=== PATIENT | male | born 1960 | race Two or more races ===

== ENCOUNTER 2025-01-07 11:13 | Emergency (ER) | payer MEDICAID ==
[~2025-01-07] VITALS: Ht 165.1 cm; Wt 70.5 kg
[~2025-01-07 11:13] MED LIST: ALBUAER3 IN; APIX5TAB PO; ATOR-507 PO; AZIT500T66 PO; CARV-214 PO; EMPA1TAB PO; FURO1TAB31 PO; LISI20TA56 PO; SPIR25TA PO
[2025-01-07 11:20] VITALS: BP 126/92; RESP 19; TEMP 98.3; O2SAT 98
[2025-01-07 11:22] VITALS: PULSE 88
--- NOTE | 2025-01-07 11:44 | ED.PDOC ---
History of Present Illness HPI Comments 64-year-old male BIBA with prior medical history of COPD, CHF, AFib, hypertension: Surgical history of paracentesis complain of generalized weakness. EMS report that the patient has generalized weakness due from not taking his medications for three months except for his pain medications. Patient states on his last bowel movement being yesterday but assumes that he is constipated. Denies chills, fever, N/V/D, SOB, CP. No other associated symptoms, modifiers, recent injuries or sick contacts present at this time. Chief Complaint: General Weakness Time Seen by MD: 11:35 Primary Care Provider: UNKNOWN Reviewed Notes: Nurses Notes, Medications, Allergies Allergies: Coded Allergies: Penicillins (Verified Allergy, Unknown, 11/03/24) Home Meds Active Scripts Lisinopril (Lisinopril) 20 Mg Tab, 1 TAB PO DAILY, #30 TAB 5 Refills Prov:FIDEL BROWN MD 11/06/24 Apixaban Base (ELIQUIS) 5 Mg Tab, 5 MG PO BID, #60 TAB Prov:FIDEL BROWN MD 11/06/24 Carvedilol (COREG) 3.125 Mg Tab, 3.125 MG PO BID, #60 TAB Prov:FIDEL BROWN MD 11/06/24 Furosemide (Lasix) 40 Mg Tab, 40 MG PO DAILY, #30 TAB Prov:FIDEL BROWN MD 11/06/24 Azithromycin (Azithromycin) 500 Mg Tab, 1 TAB PO DAILY, #7 TAB Prov:FIDEL BROWN MD 11/06/24 Atorvastatin Calcium (Lipitor) 40 Mg Tab, 1 TAB PO DAILY, #30 TAB 5 Refills Prov:FIDEL BROWN MD 11/06/24 Empagliflozin (Jardiance) 10 Mg Tab, 10 MG PO DAILY, #30 TAB Prov:FIDEL BROWN MD 11/06/24 Albuterol Sulfate (VENTOLIN MDI) 90 Mcg Ih, 90 MCG IN QID PRN, #1 INH Prov:FIDEL BROWN MD 11/06/24 Spironolactone (Aldactone) 25 Mg Tab, 1 TAB PO DAILY, #30 TAB 5 Refills Prov:FIDEL BROWN MD 11/06/24 Information Source: Patient Mode of Arrival: EMS Severity: Moderate Timing: Months Duration: Since onset Prehospital treatment: None Past Medical History PAST MEDICAL HISTORY: AFIB, CHF, COPD, HTN Surgical History (Other): Paracentesis Family History Family History: Reviewed,noncontributory to illness, Unknown Social History Smoker: Quit Greater Than 1 Year Alcohol: Denies ETOH Use Drugs: Denies Drug Use Lives In: Home Constitutional: reports: weakness; denies: chills, diaphoresis, fatigue, fever, malaise, sweats, others EENTM: denies: blurred vision, double vision, ear bleeding, ear discharge, ear drainage, ear pain, ear ringing, eye pain, eye redness, hearing loss, mouth pain, mouth swelling, nasal discharge, nose bleeding, nose congestion, nose pain, photophobia, tearing, throat pain, throat swelling, voice changes, others Respiratory: denies: cough, hemoptysis, orthopnea, SOB at rest, shortness of breath, SOB with excertion, stridor, wheezing, others Cardiovascular: denies: chest pain, dizzy spells, diaphoresis, Dyspnea on exertion, edema, irregular heart beat, left arm pain, lightheadedness, palpitations, PND, syncope, others Gastrointestinal: denies: abdomen distended, abdominal pain, blood streaked bowels, constipated, diarrhea, dysphagia, difficulty swallowing, hematemesis, melena, nausea, poor appetite, poor fluid intake, rectal bleeding, rectal pain, vomiting, others Genitourinary: denies: burning, dysuria, flank pain, frequency, hematuria, incontinence, penile discharge, penile sore, pain, testicle pain, testicle swelling, urgency, others Neurological: denies: dizziness, fainting, headache, left sided numbness, left sided weakness, numbness, paresthesia, pre-existing deficit, right sided numbness, right sided weakness, seizure, speech problems, tingling, tremors, weakness, others Musculoskeletal: denies: back pain, gout, joint pain, joint swelling, muscle pain, muscle stiffness, neck pain, others Integumetry: denies: bruises, change in color, change in hair/nails, dryness, laceration, lesions, lumps, rash, wounds, others Allergic/Immunocompromised: denies: Difficulty Healing, Frequent Infections, Hives, Itching, others Hematologic/Lymphatic: denies: anemia, blood clots, easy bleeding, easy bruising, swollen glands, others Endocrine: denies: excessive hunger, excessive sweating, excessive thirst, excessive urination, flushing, intolerance to cold, intolerance to heat, unexplained weight gain, unexplained weight loss, others Psychiatric: denies: anxiety, bipolar disorder, depression, hopeless, panic disorder, schizophrenia, sleepless, suicidal, others All Other Systems: Reviewed and Negative Physical Exam Exam Comments Patient seems uncomfortable. General Appearance: No Apparent Distress, Normal HEENT: Normal ENT Inspection, Pharynx Normal, TMs Normal Neck: Full Range of Motion, Non-Tender, Normal, Normal Inspection Respiratory: Chest Non-Tender, Lungs Clear, No Accessory Muscle Use, No Respiratory Distress, Normal Breath Sounds Cardiovascular: No Edema, No JVD, No Murmur, No Gallop, Normal Peripheral Pulses, Regular Rate/Rhythm Breast Exam: Deferred Gastrointestinal: No Organomegaly, Non Tender, No Pulsatile Mass, Normal Bowel Sounds, Soft Genitalia: Deferred Pelvic: Deferred Rectal: Deferred Extremities: No calf tenderness, Normal capillary refill, Normal inspection, Normal range of motion, Non-tender, No pedal edema Musculoskeletal : Apperance: Normal Neurologic: Alert, 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 Was a procedure done?: No X-Ray, Labs, Meds, VS Vital Signs Date Time Temp Pulse Resp B/P (MAP) Pulse Ox O2 Delivery O2 Flow Rate FiO2 01/07/25 11:22 88 01/07/25 11:20 98.3 89 19 126/92 98 98.3 Time of 1ST Reevaluation: 12:05 Reevaluation 1ST: Unchanged Patient Education/Counseling: Diagnosis, Treatment, Prognosis Family Education/Counseling: No Family Present SEPSIS Sepsis Screen Date sepsis recognized/suspect: Jan 07, 2025 Time Sepsis recognized/suspect: 1117 Recent Procedure: No On Antibiotic Therapy: No Respiratory Rate >20: No Heart Rate >90: No Temp<36 C (96.8 F) or >38.3 C: No SBP <90 or MAP <65 mmHG: No New Acute Mental Status Change: No Is the patient on CPAP, BIPAP,: No Physician Orders Electrocardigram (01/07/25 11:30) Vital Signs Date Time Temp Pulse Resp B/P (MAP) Pulse Ox O2 Delivery O2 Flow Rate FiO2 01/07/25 11:22 88 01/07/25 11:20 98.3 89 19 126/92 98 98.3 Critical Care Note Critical Care Time?: No Stability Stability form required: No I personally scribed for JENIFER ANDRADE MD ([email or web address]) on 01/07/25 at 11:44. Electronically submitted by Rodriguez Sharpe ([email or web address]). JENIFER ANDRADE MD Jan 07, 2025 11:44
--- NOTE | 2025-01-08 19:25 | ECG ---
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
== END 2025-01-07 12:23 | disposition left against medical advice (07) ==
LOC: ER 11:13 → EDUNIT# 11:13 → EDBD 11:13 → ER 12:23
DX: R53.1 Weakness (principal); I11.0 Hypertensive heart disease with heart failure; I50.9 Heart failure, unspecified; I48.91 Unspecified atrial fibrillation; J44.9 Chronic obstructive pulmonary disease, unspecified; Z88.0 Allergy status to penicillin; Z79.899 Other long term (current) drug therapy
CPT/HCPCS: 93005

== ENCOUNTER 2025-01-19 16:00 | Inpatient (IN) | payer MEDICAID ==
[~2025-01-19] VITALS: Ht 170.2 cm; Wt 67.3 kg
--- NOTE | 2025-01-19 16:20 | ED.PDOC ---
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 Electronically submitted by Kylie Corral ([email or web address]). I personally scribed for MILENA BOSS DO ([email or web address]) on 01/19/25 at 16:21. Electronically submitted by Kylie Corral [email or web address]). MILENA BOSS DO Jan 19, 2025 16:20
--- NOTE | 2025-01-19 16:28 | ED.PDOC ---
SOB-HPI HPI Comments HPI: 64 y/o M, with PMHx of AFib, COPD, and CHF is BIBA for CC of shortness of breath. EMS reports, patient is coming from Urgent Care where he c/o shortness of breath onset, [id number]. Upon arrival, to scene patient was stating at 82% on room air; patient was placed on oxygen at 2lpm. Upon arrival, to the ED patient's oxygen saturation improved to 100% and all VS are WNL. Patient reports, that he does not currently have any at home medications despite PMHx. Patient denies cough, sore-throat, chest pain, palpations, or fever. No other symptoms or modifying factors are present at this time. Initial Vitals BP:132/78 HR:98 RR:20 O2 Sat:100% Temp: Past Medical history: AFib, COPD, CHF Past Surgical history: Medications: Lasix Social History: Denies smoking, ETOH, and drug use. Allergies: Penicillins [place]: SOB HPI: Poor Historian. REVIEW OF SYSTEMS: CONSTITUTIONAL: Denies acute: fever, diaphoresis, chills, HEAD: Denies acute: headache, photophobia Eyes: Denies acute: Double vision, vision loss, eye pain, eye discharge. EARS: Denies acute: tinnitus, hearing loss, ear discharge, ear pain, THROAT: Denies acute: sore throat, swelling, difficulty swallowing , pain with swallowing, change in voice. NECK: Denies acute: neck pain, neck swelling, stiff neck. HEART: Denies acute : chest pain, palpitations, LUNGS: Denies acute: , wheezing, cough, hemoptysis ABDOMEN: Denies acute: abdominal pain, Nausea, Vomiting, diarrhea, melena , hematemesis, hematochezia SKIN: Denies acute: rash, redness, lesions, itchiness. EXTREMITIES: Denies acute: calf pain, numbness, tingling, weakness, denies pain in extremity. Denies acute: Low back pain. Neuro: Denies acute: focal neurological deficit, motor or sensory focal neurological deficit, tremors, seizure like activity, confusion, dizziness, change in mental status, loss of bowel or bladder function, cauda equina like symptoms. : Denies acute: dysuria, hematuria, flank pain, increase in urinary frequency. PSYCH: Denies acute: hallucination, suicidal ideation, homicidal ideation. PHYSICAL EXAM: General: -----moderate---acute distress, awake and alert. Poor hygiene. Head: normocephalic, atraumatic. Neck: supple, trachea is midline, no swelling. Throat: Normal phonation. Eyes:, no erythema, no purulent discharge, no proptosis, no icterus. Heart: regular rate, regular rhythm, no significant murmur appreciated. Lungs: no apparent respiratory distress, Able to speak in full sentences. No wheezing, no rhonchi, no crackles. No stridors Clear to auscultation bilaterally. Abdomen: non tender to palpation, non distended, soft, no guarding, no rebound, + bowel sounds. Neuro: Awake, Alert, oriented to name, self, situation, follows commands GCS=15. Speech is normal. Skin: no petechia, no purpura, no cyanosis, non-pale, not jaundice. Lower extremities: --trace bilateral- Pitting edema no deformity, no focal swelling, no calf TTP. Makes eye contact. moves all four extremities. Face: no apparent facial droop. ED COURSE: DISCLAIMER: This medical document was created using an electronic medical record system with voice recognition software and computerized dictation system. Although this document has been carefully reviewed, there might still be some phonetic and typographical errors. Occasional wrong-word or "sound-alike" substitutions may have occurred due to the inherent limitations of voice recognition software. Th francisco areas are purely typographical due to imperfections of the software programs and do not reflect any compromise in the patient's medical care. Please read the chart carefully and recognize, using context, where these substitutions have occurred. Chief Complaint: Shortness of Breath Time Seen by MD: 15:50 Primary Care Provider: UNKNOWN Reviewed notes: Nurses Notes, Epic Cadence Analyst Notes, Medications, Allergies Information Source: Patient, Emergency Med Personnel Mode of Arrival: EMS Severity: Moderate Timing: Months Duration: Since onset Context: At Rest PE Risk Factors: None History of: COPD, CHF Prehospital treatment: None Modifying Factors: Nothing Associated Signs and Symptoms: None Differential Dx Differential Diagnosis: Bronchitis, Pneumonia, Pulmonary Embolism, Sinusitis, Pharyngitis, URI, Other (DDx include ACS, unstable angina, anxiety, PE, pneumothroax, neoplasm, cardiac ischemia, COPD, asthma, CHF, pleural effusion, tobacco abuse, pneumonia, hypoxia, hypercapnia, anemia., infection/sepsis., pulmonary edema. Asthma, Cardiac tamponade, infection.) X-Ray, Labs, Meds, VS Vital Signs Date Time Temp Pulse Resp B/P (MAP) Pulse Ox O2 Delivery O2 Flow Rate FiO2 01/19/25 19:30 99 17 95 Nasal Cannula* 2 28 01/19/25 19:00 98.2 99 16 104/64 (77) 95 98.2 01/19/25 18:21 106/69 01/19/25 18:00 97 20 106/69 (81) 95 01/19/25 17:25 97.7 106 18 107/65 (79) 97 97.7 01/19/25 17:25 106 18 97 Nasal Cannula* 2 28 01/19/25 16:10 109 01/19/25 16:00 98 20 132/78 100 Lab Test 01/19/25 19:13 01/19/25 17:38 Range/Units Lactic Acid Level 4.0 *H 4.5 *H 0.4-2.0 mmol/L Troponin I High Sensitivity 537 *H 600 *H </=54 ng/L White Blood Count 13.3 H 4.4-10.8 10^3/uL Red Blood Count 5.20 4.5-5.90 10^6/uL Hemoglobin 14.6 13.5-17.5 g/dL Hematocrit 44.8 41.0-53.0 % Mean Corpuscular Volume 86.3 80.0-100.0 fL Mean Corpuscular Hemoglobin 28.2 28.0-32.0 pg Mean Corpuscular Hemoglobin Concent 32.7 32.0-36.0 g/dL Red Cell Distribution Width 21.0 H 11.8-14.3 % Platelet Count 141 140-450 10^3/uL Mean Platelet Volume 10.0 6.9-10.8 fL Neutrophils (%) (Auto) 89.8 H 37.0-80.0 % Lymphocytes (%) (Auto) 2.2 L 10.0-50.0 % Monocytes (%) (Auto) 7.3 0.0-12.0 % Eosinophils (%) (Auto) 0.1 0.0-7.0 % Basophils (%) (Auto) 0.6 0.0-2.0 % Neutrophils # (Auto) 11.9 H 1.6-8.6 10 ^3/uL Lymphocytes # (Auto) 0.3 L 0.4-5.4 10 ^3/uL Monocytes # (Auto) 1.0 0-1.3 10 ^3/uL Eosinophils # (Auto) 0 0-0.8 10 ^3/uL Basophils # (Auto) 0.1 0-0.2 10 ^3/uL Nucleated Red Blood Cells 0.1 % D-Dimer, Quantitative 2.74 H 0.0-0.49 mg/L FEU Sodium Level 134 L 136-145 mmol/L Potassium Level 4.6 3.5-5.1 mmol/L Chloride Level 98 98-107 mmol/L Carbon Dioxide Level 21 20-31 mmol/L Anion Gap 15 5-15 Blood Urea Nitrogen 35 H 9-23 mg/dL Creatinine 1.90 H 0.700-1.30 mg/dL Glomerular Filtration Rate Calc 39 >90 mL/min BUN/Creatinine Ratio 18.4 10.0-20.0 Serum Glucose 163 H 74-106 mg/dL Calcium Level 9.4 8.7-10.4 mg/dL Total Bilirubin 3.1 H 0.2-1.0 mg/dL Aspartate Amino Transferase (AST) 400 H 13-40 U/L Alanine Aminotransferase (ALT) 209 H 7-40 U/L Alkaline Phosphatase 257 H 46-116 U/L B-Type Natriuretic Peptide > 5000.00 0-100 pg/mL Total Protein 6.9 5.7-8.2 g/dL Albumin 3.8 3.2-4.8 g/dL [address] [address] Ph: [phone] DIAGNOSTIC IMAGING Diagnostic Imaging Report : [id number] Signed PATIENT: ZEKE FLORIAN ACCT: [id number] UNIT: [id number] : 1960 LOC: ER ROOM / BED: / AGE / SEX: 64 / M ADM STATUS: REG ER SERVICE 1610 ORDERING PHYSICIAN: KARYN,MILENA J DO PROCEDURE(s): CXRP - CHEST PORTABLE REASON: sob ORDER NUMBER(s): [id number], ACCESSION NUMBER(s): [id number] CHEST RADIOGRAPH Indication: sob Technique: Single frontal view of the chest was obtained Comparison: XY CHEST XRAY 1 VIEW on DOS: 11/04/24, XY CHEST PORTABLE on DOS: 11/03/24 FINDINGS: Lines and Tubes: None Lungs: Diffuse interstitial prominence. Opacification of the right mid and lower lung zone with obscuration of the right hemidiaphragm No pneumothorax. Cardiomediastinal contours: Moderate cardiomegaly Bones: No acute osseous abnormality. IMPRESSION: Cardiomegaly with pulmonary vascular congestion and large right-sided pleural effusion with associated atelectasis. Underlying pneumonia can not be excluded. ATED BY: ZARINA POOL DO DICTATED DATE/TIME: 01/19/25 163 SIGNED BY: ZARINA POOL DO SIGNED DATE/TIME: 01/19/25 1639 CC: Time of 1ST Reevaluation: 16:20 Reevaluation 1ST: Unchanged Time of 2ND Reevaluation: 17:51 (All labs are still pending) Patient Education/Counseling: Diagnosis, Treatment Family Education/Counseling: Other Comments MDM: patient presented with the above HPI.---dyspnea---workup was initiated. patient was found with the above mentioned diagnosis. the following medications were ordered: please refer to order lists of meds and tests obtained by myself Dr. Boss. Patient ED course and VS have been stabilized. Patient has been reassessed in the ED and remained in a stable condition. Pertinent incidental findings were discussed with the patient and/or family. Patient/family voices understanding and is agreeable with plan. Patient has been observed in the ED adequate length of time to insure i mprovement/stability. Escalation of care considered: Consideration of escalation to observation or admission Patient was found with multiple conditions including pneumonia. Antibiotics initiated. Diuretics were given. Patient was ADMITTED to the medicine team for further evaluation and treatment of their presentation. All the reports of any imaging studies that were ordered by myself were reviewed by myself. 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 (01/19/25 ) Chest Portable (01/19/25 16:10) Electrocardigram (01/19/25 16:10) Electrocardigram (01/19/25 17:10) Electrocardigram (01/19/25 19:10) Vital Signs Date Time Temp Pulse Resp B/P (MAP) Pulse Ox O2 Delivery O2 Flow Rate FiO2 01/19/25 19:30 99 17 95 Nasal Cannula* 2 28 01/19/25 19:00 98.2 99 16 104/64 (77) 95 98.2 01/19/25 18:21 106/69 01/19/25 18:00 97 20 106/69 (81) 95 01/19/25 17: 97.7 106 18 107/65 (79) 97 97.7 01/19/25 17:25 106 18 97 Nasal Cannula* 2 28 01/19/25 16:10 109 01/19/25 16:00 98 20 132/78 100 Laboratory Tests Test 01/19/25 17:38 01/19/25 19:13 Lactic Acid Level 4.5 mmol/L (0.4-2.0) *H 4.0 mmol/L (0.4-2.0) *H White Blood Count 13.3 10^3/uL (4.4-10.8) H Departure 1 Departure Time of Disposition: 16:20 Impression: Primary Impression: Acute exacerbation of CHF (congestive heart failure) Additional Impressions: Acute hypoxic respiratory failure Pneumonia Elevated troponin Elevated LFTs Elevated lactic acid level Elevated d-dimer Disposition: ADMITTED INPATIENT Admit to: Tele Condition: Guarded e-Prescriptions Linezolid (Zyvox) 600 Mg Tab 600 MG PO BID for 7 Days, #14 TAB Prov: GILBERT MEZA MD 01/23/25 Mupirocin (Pseudomonas Fluores (Mupirocin) 2 % Oin 2 % EX BID for 4 Days, #15 GM Prov: GILBERT MEZA MD 01/23/25 Discharged With: Self Critical Care Note Critical Care Time?: Yes (45 min-critical care time only) Heart Score Heart Score: Heart Score Response (Comments) Value History Moderate Suspicious 1 EKG Normal 0 Age 45-64 1 Risk Factors 1 or 2 risk factors 1 Troponin >3 x's Normal limit 2 Total 5 I personally scribed for MILENA BOSS DO ([email or web address]) on 01/19/25 at 16:28. Electronically submitted by Kylie Corral ([email or web address]). I personally scribed for MILENA BOSS DO ([email or web address]) on 01/19/25 at 16:49. Electronically submitted by Kylie Corral ([email or web address]). MILENA BOSS DO Jan 19, 2025 16:28
--- NOTE | 2025-01-19 16:42 | DVH ---
CHEST RADIOGRAPH Indication: sob Technique: Single frontal view of the chest was obtained Comparison: XY CHEST XRAY 1 VIEW on DOS: 11/04/24, XY CHEST PORTABLE on DOS: 11/03/24 FINDINGS: Lines and Tubes: None Lungs: Diffuse interstitial prominence. Opacification of the right mid and lower lung zone with obsc uration of the right hemidiaphragm No pneumothorax. Cardiomediastinal contours: Moderate cardiomegaly Bones: No acute osseous abnormality. IMPRESSION: Cardiomegaly with pulmonary vascular congestion and large right-sided pleural effusion with associate d atelectasis. Underlying pneumonia can not be excluded.
--- NOTE | 2025-01-19 17:04 | ECG ---
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
[2025-01-19 17:25] VITALS: PULSE 106; RESP 18; O2SAT 97
--- NOTE | 2025-01-19 18:00 | ECG ---
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
[2025-01-19 18:03] LABS: Hematocrit 44.8 % (41.0-53.0); Hemoglobin 14.6 g/dL (13.5-17.5); Mean Corpuscular Hemoglobin 28.2 pg (28.0-32.0); Mean Corpuscular Volume 86.3 fL (80.0-100.0); Nucleated Red Blood Cells % 0.1 %
[2025-01-19 18:19] LABS: Albumin 3.8 g/dL (3.2-4.8); Anion Gap 15 (5-15); BUN/Creatinine Ratio 18.4 (10.0-20.0); Calcium 9.4 mg/dL (8.7-10.4); Carbon Dioxide 21 mmol/L (20-31); Potassium 4.6 mmol/L (3.5-5.1); Total Protein 6.9 g/dL (5.7-8.2)
[2025-01-19] MEDS: FUROSEMIDE 40 MG/4 ML VIAL IV ONE (18:21)
[2025-01-19] MEDS: methylPREDNISolone SOD SUCC 125 MG/2 ML VL IV ONE (18:21)
[2025-01-19] MEDS: ALBUTEROL SULF 2.5 MG/0.5ML(0.5%) NEB SOLN NEB ONE (18:25)
[2025-01-19] MEDS: ASPirin-EC 325mg tab PO ONE (18:25)
[2025-01-19] MEDS: IPRATROPIUM BROM 0.5 MG/2.5ML INH SOL NEB ONE (18:25)
[2025-01-19] MEDS: levoFLOXacin 250 MG TAB PO ONE (18:25)
[2025-01-19 18:26] LABS: Alanine Aminotransferase 209 U/L (7-40); Alkaline Phosphatase 257 U/L (46-116); Bilirubin, Total 3.1 mg/dL (0.2-1.0); Blood Urea Nitrogen 35 mg/dL (9-23); Chloride 98 mmol/L (98-107); Glucose 163 mg/dL (74-106); Sodium 134 mmol/L (136-145)
[2025-01-19 18:37] LABS: Lactic Acid w/Reflex 4.5 mmol/L (0.4-2.0)
[2025-01-19 19:30] VITALS: PULSE 99; RESP 17; O2SAT 95
[2025-01-19] MEDS ORDERED: MORPHINE SULFATE INJ 2 MG/ml SYRG IV PRN (19:45)
[2025-01-19] MEDS ORDERED: NITROGLYCERIN 0.4 MG SL TAB SL PRN (19:45)
[2025-01-19] MEDS ORDERED: ONDANSETRON HCL 4 MG/2 ML VIAL IV PRN (19:45)
--- NOTE | 2025-01-19 20:18 | ECG ---
[facility] Test Date: 2025-01-19 Test Time: 19:46:32 Pat Name: ZEKE FLORIAN Department: Room: 0232T Gender: M Recapper: YG : 1960 Requested By: MILENA BOSS Order Number: [id number] Reading MD: Adonis Plaza Measurements Intervals [place] Rate: 98 P: 83 ME: 173 QRS: 259 QRSD: 177 T: 66 QT: 420 QTc: 537 Interpretive Statements Sinus rhythm Nonspecific IVCD with LAD Probable lateral infarct, age indeterminate Anterior infarct, acute (LAD) Electronically Signed On 01-20-2025 16:41:07 PDT by Adonis Plaza Please click the below link to view image of tracing.
[2025-01-19 20:30] VITALS: BP 104/64; PULSE 100; RESP 18; TEMP 98.2; O2SAT 98
[2025-01-19] MEDS: APIXABAN 5 MG TAB PO SCH (22:12)
[2025-01-19] MEDS: ATORVASTATIN 20 MG TAB PO SCH (22:12)
[2025-01-19] MEDS: CARVEDILOL 3.125 MG TAB PO SCH (22:13)
[2025-01-20] VITALS (17 sets, daily range): BP systolic 93–115; BP diastolic 66–83; PULSE 83–107; RESP 18–25; TEMP 96.3–98.1; O2SAT 90–100
[2025-01-20] MEDS: TEMAZEPAM 15 MG CAP PO PRN (00:21)
--- NOTE | 2025-01-20 04:36 | DVHHP2 ---
History of Present Illness Reason for Visit: Shortness for breath History of Present Illness 64-year-old male presents for evaluation of shortness for breath. Patient endorses a one month history of worsening shortness for breath. He states symptoms became worse over the past three days with associated chest tightness and a nonproductive cough. He states not taking his medications over the past couple of days. Denies fever or chills. No other acute complaints reported. Past Medical History COPD, hypertension, CHF, AFib Past Surgical History Denies Family History Noncontributory Smoke: No ALCOHOL: none Drugs: None Lives: with Family Review of Systems Review of Systems Review of systems are currently negative otherwise addressed in HPI. Allergies: Coded Allergies: Penicillins (Verified Allergy, Unknown, 11/03/24) Medications Current Medications Medications Dose Ordered Sig/Simon Route Start Time Stop Time Status Last Admin Dose Admin Spironolactone 25 mg DAILY PO 01/20/25 10:00 Lisinopril 20 mg DAILY PO 01/20/25 10:00 Apixaban 5 mg BID PO 01/19/25 22:00 01/19/25 22:12 5 MG Atorvastatin Calcium 40 mg HS PO 01/19/25 22:00 01/19/25 22:12 40 MG Aspirin 162 mg DAILY PO 01/20/25 10:00 Carvedilol 3.125 mg Q12HR PO 01/19/25 22:00 01/19/25 22:13 3.125 MG Empaglifozin 10 mg DAILY PO 01/20/25 10:00 Furosemide 20 mg BIDD IV 01/20/25 06:00 Albuterol 2.5 mg Q6HPRN PRN NEB 01/19/25 19:45 Ipratropium [place] 0.5 mg Q6HPRN PRN NEB 01/19/25 19:45 Levofloxacin 50 ml @ 50 mls/hr Q24H IV 01/20/25 17:00 Temazepam 15 mg QHSP PRN PO 01/19/25 19:45 01/20/25 00:21 15 MG Ondansetron HCl 4 mg Q4HP PRN IV 01/19/25 19:45 Acetaminophen 650 mg Q6HP PRN PO 01/19/25 19:45 Nitroglycerin 0.4 mg Q5MINP PRN SL 01/19/25 19:45 Morphine Sulfate 2 mg Q30M PRN IV 01/19/25 19:45 Exam Vital Signs Vital Signs Date Time Temp Pulse Resp B/P (MAP) Pulse Ox O2 Delivery O2 Flow Rate FiO2 01/20/25 03:07 86 18 Nasal Cannula* 2 28 01/20/25 03:07 97.5 93/66 (75) 95 97.5 Exam Gen: 64-year-old male in mild Skin: Warm, dry, normal color and texture, no rash. HEENT: Normocephalic atraumatic, mucous membranes moist and pink. Neck: Cervical and supraclavicular nodes normal without enlargement, trachea is midline, thyroid gland is normal without masses. Pulmonary: Clear to auscultation and percussion bilaterally. Cardiac: Regular rate and rhythm. No murmur Abdomen: Soft, nontender, nondistended, bowel sounds present all 4 quadrants, no guarding, no rigidity, no organomegaly. Extremities: No cyanosis, clubbing, no edema Neuro: Cranial nerves II through XII grossly intact, normal affect and speech, no focal motor deficits. Labs/Xrays ORDERING PHYSICIAN: DA JIANG PROCEDURE(s): ECIDC - ECHO 2D MODE CARDIAC DOP REASON: ef ORDER NUMBER(s): [id number], ACCESSION NUMBER(s): [id number] APPROVED REPORT EXAM: Two-dimensional echocardiogram with Optison. Blood Pressure: 128/81 mmHg INDICATION ef RISK FACTORS Height: 5'6, Weight: 187 DIMENSIONS LVDd 6.6 (3.8-5.7cm) LA (2D) 4.8 (1.9-4.0cm) Aortic Root 2.9 (2.0- 3.7cm) LVDs 5.7 (2.5-4.0cm) LA (MM) (1.9-4.0cm) Aortic Cusp Exc 1.7 (1.5- 2.0cm) EF (%) 15.0 (55-70%) Rt. Atrium 5.0 (1.9-4.0cm) Asc. Aorta 3.1 cm IVSd 0.7 (0.7-1.1cm) RV (D) 4.7 (1.8-2.4cm) PWd 0.6 (0.7-1.1cm) Mitral Valve Mitral Mitral Stenosis E wave m/s MV Mean GR. 3mmHg A wave m/s MV Peak GR. 83mmHg E/A ratio 0.0 2D MVA cm2 Aortic Valve Aortic Valve Aortic Stenosis V1 0.65m/s AO Mean GR. mmHg V2 0.92m/s AO Peak GR. 3mmHg LVOT Diameter 2.1 (1.8-2.4cm) Doppler MORENA 2.45cm2 Pulmonic Valve V2 0.70m/s Tricuspid Valve TR Velocity 2.89m/s RVSP 44mmHg Other Information Technically limited study due to pt woke up very confused pulling on ekg. Conclusion lvef 15% severe end stage dilated CM optsion used for enhanced LV opacifciaiton apical thrombus noted <1 cm moderate RV dysfunction biatrianl enlargement severe tricuspid regurg moderate to severe MR SIGNED BY: SERJIO LUCIANO MD ORDERING PHYSICIAN: MILENA BOSS DO PROCEDURE(s): CXRP - CHEST PORTABLE REASON: sob ORDER NUMBER(s): [id number], ACCESSION NUMBER(s): [id number] CHEST RADIOGRAPH Indication: sob Technique: Single frontal view of the chest was obtained Comparison: XY CHEST XRAY 1 VIEW on DOS: 11/04/24, XY CHEST PORTABLE on DOS: 11/03/24 FINDINGS: Lines and Tubes: None Lungs: Diffuse interstitial prominence. Opacification of the right mid and lower lung zone with obscuration of the right hemidiaphragm No pneumothorax. Cardiomediastinal contours: Moderate cardiomegaly Bones: No acute osseous abnormality. IMPRESSION: Cardiomegaly with pulmonary vascular congestion and large right-sided pleural effusion with associated atelectasis. Underlying pneumonia can not be excluded. Labs Test 01/19/25 21:16 01/19/25 19:13 01/19/25 17:38 Range/Units Troponin I High Sensitivity 572 *H </=54 ng/L Lactic Acid Level 4.0 *H 0.4-2.0 mmol/L White Blood Count 13.3 H 4.4-10.8 10^3/uL Red Blood Count 5.20 4.5-5.90 10^6/uL Hemoglobin 14.6 13.5-17.5 g/dL Hematocrit 44.8 41.0-53.0 % Mean Corpuscular Volume 86.3 80.0-100.0 fL Mean Corpuscular Hemoglobin 28.2 28.0-32.0 pg Mean Corpuscular Hemoglobin Concent 32.7 32.0-36.0 g/dL Red Cell Distribution Width 21.0 H 11.8-14.3 % Platelet Count 141 140-450 10^3/uL Mean Platelet Volume 10.0 6.9-10.8 fL Neutrophils (%) (Auto) 89.8 H 37.0-80.0 % Lymphocytes (%) (Auto) 2.2 L 10.0-50.0 % Monocytes (%) (Auto) 7.3 0.0-12.0 % Eosinophils (%) (Auto) 0.1 0.0-7.0 % Basophils (%) (Auto) 0.6 0.0-2.0 % Neutrophils # (Auto) 11.9 H 1.6-8.6 10 ^3/uL Lymphocytes # (Auto) 0.3 L 0.4-5.4 10 ^3/uL Monocytes # (Auto) 1.0 0-1.3 10 ^3/uL Eosinophils # (Auto) 0 0-0.8 10 ^3/uL Basophils # (Auto) 0.1 0-0.2 10 ^3/uL Nucleated Red Blood Cells 0.1 % D-Dimer, Quantitative 2.74 H 0.0-0.49 mg/L FEU Sodium Level 134 L 136-145 mmol/L Potassium Level 4.6 3.5-5.1 mmol/L Chloride Level 98 98-107 mmol/L Carbon Dioxide Level 21 20-31 mmol/L Anion Gap 15 5-15 Blood Urea Nitrogen 35 H 9-23 mg/dL Creatinine 1.90 H 0.700-1.30 mg/dL Glomerular Filtration Rate Calc 39 >90 mL/min BUN/Creatinine Ratio 18.4 10.0-20.0 Serum Glucose 163 H 74-106 mg/dL Calcium Level 9.4 8.7-10.4 mg/dL Total Bilirubin 3.1 H 0.2-1.0 mg/dL Aspartate Amino Transferase (AST) 400 H 13-40 U/L Alanine Aminotransferase (ALT) 209 H 7-40 U/L Alkaline Phosphatase 257 H 46-116 U/L B-Type Natriuretic Peptide > 5000.00 0-100 pg/mL Total Protein 6.9 5.7-8.2 g/dL Albumin 3.8 3.2-4.8 g/dL SEPSIS Sepsis Screen Date sepsis recognized/suspect: Jan 19, 2025 Time Sepsis recognized/suspect: 1929 Recent Procedure: No On Antibiotic Therapy: No Respiratory Rate >20: No Heart Rate >90: No Temp<36 C (96.8 F) or >38.3 C: No SBP <90 or MAP <65 mmHG: No New Acute Mental Status Change: No Is the patient on CPAP, BIPAP,: No Physician Orders Mrsa Screen (01/20/25 03:14) * Cardiology Consult (01/20/25 03:34) Vital Signs Date Time Temp Pulse Resp B/P (MAP) Pulse Ox O2 Delivery O2 Flow Rate FiO2 01/20/25 03:07 86 18 Nasal Cannula* 2 28 01/20/25 03:07 97.5 86 18 93/66 (75) 95 97.5 01/20/25 02:00 87 01/20/25 01:00 99 19 115/55 (75) 96 01/20/25 00:00 89 01/19/25 23:40 100 16 115/79 (91) 92 01/19/25 23:13 73 99/62 01/19/25 22:13 101 115/55 01/19/25 21:00 102 18 117/65 (82) 93 Laboratory Tests Test 01/19/25 17:38 01/19/25 19:13 Lactic Acid Level 4.5 mmol/L (0.4-2.0) *H 4.0 mmol/L (0.4-2.0) *H White Blood Count 13.3 10^3/uL (4.4-10.8) H Medications Medications Dose Ordered Sig/Simon Route Start Time Stop Time Status Last Admin Dose Admin Apixaban 5 mg BID PO 01/19/25 22:00 01/19/25 22:12 5 MG Aspirin 325 mg ONCE ONCE PO 01/19/25 16:45 01/19/25 16:46 DC 01/19/25 18:25 325 MG Atorvastatin Calcium 40 mg HS PO 01/19/25 22:00 01/19/25 22:12 40 MG Carvedilol 3.125 mg Q12HR PO 01/19/25 22:00 01/19/25 22:13 3.125 MG Furosemide 40 mg ONCE ONCE IV 01/19/25 16:45 01/19/25 16:46 DC 01/19/25 18:21 40 MG Levofloxacin 750 mg ONCE ONCE PO 01/19/25 16:45 01/19/25 16:46 DC 01/19/25 18:25 750 MG Temazepam 15 mg QHSP PRN PO 01/19/25 19:45 01/20/25 00:21 15 MG Assessment/Plan Assessment/Plan Assessment Acute on chronic respiratory failure CHF exacerbation COPD Noncompliant Plan Admit the patient to telemetry to the hospitalist IV Lasix Resume home medications Continue treatment per orders. Plan discussed with: Patient My Orders Orders - DA JIANG Procedure Category Date Status Time Spironolactone PHA 01/20/25 In Process (Aldactone) 10:00 Lisinopril Tablet PHA 01/20/25 In Process (Zestril Tablet) 10:00 Apixaban (Eliquis) PHA 01/19/25 In Process 22:00 Atorvastatin (Lipitor) PHA 01/19/25 In Process 22:00 Aspirin Tablet PHA 01/20/25 In Process 10:00 Carvedilol Tablet PHA 01/19/25 In Process (Coreg Tablet) 22:00 Empagliflozin PHA 01/20/25 In Process (Jardiance) 10:00 Furosemide Injection PHA 01/20/25 In Process (Lasix Injection) 06:00 Albuterol Medneb PHA 01/19/25 In Process (Ventolin Medneb) 19:45 Ipratropium Medneb PHA 01/19/25 In Process (Atrovent Medneb) 19:45 Levofloxacin 250mg PHA 01/20/25 In Process (Levaquin 250mg) 17:00 Basic Metabolic Panel LAB 01/20/25 Logged 04:00 Admit ADMIT 01/19/25 Transmitted 19:40 Temazepam (Restoril) PHA 01/19/25 In Process 19:45 Ondansetron Hcl PHA 01/19/25 In Process (Zofran) 19:45 Cardiac DIET 01/20/25 Transmitted Diet-2gna,Lofat,Lochol Breakfast Condition: Fair [facility] 01/19/25 In Process 19:40 Acetaminophen Tablet [facility] 01/19/25 In Process (Tylenol Tablet) 19:45 Bedrest With Bathroom [facility] 01/19/25 In Process Privileg 19:40 Nitroglycerin [facility] 01/19/25 In Process Sublingual (Ntrostat 19:45 Morphine Sulfate [facility] 01/19/25 In Process Injection 19:45 Stat Ekg For Chest [facility] 01/19/25 In Process Pain 19:40 Notify Md Of Changes [facility] 01/19/25 In Process From Base 19:40 Final Inspector Truck Trailer For [facility] 01/19/25 In Process 24 Hours 19:40 Emergency Dysrhythmia [facility] 01/19/25 In Process Protocol 19:40 Rhythm Strips Once [facility] 01/19/25 In Process Every Shift 19:40 Oxygen By Nasal RT 01/19/25 Transmitted Cannula 19:40 Mrsa Screen JUAN 01/20/25 Uncollected 03:14 * Cardiology Consult CONS 01/20/25 Transmitted 03:34 Date of Service: Jan 19, 2025 Billing Provider: DA JIANG Common Visit Codes: [id number] INP/OBS CARE (HIGH) DA JIANG Jan 20, 2025 04:36
[2025-01-20] MEDS: FUROSEMIDE 20 MG/2 ML VIAL IV SCH (06:35)
[2025-01-20 08:27] LABS: Anion Gap 12 (5-15); Calcium 9.0 mg/dL (8.7-10.4); Carbon Dioxide 24 mmol/L (20-31)
[2025-01-20 08:32] LABS: BUN/Creatinine Ratio 30.9 (10.0-20.0)
[2025-01-20 08:35] LABS: Blood Urea Nitrogen 60 mg/dL (9-23); Chloride 96 mmol/L (98-107); Glucose 254 mg/dL (74-106); Potassium 5.4 mmol/L (3.5-5.1); Sodium 132 mmol/L (136-145)
--- NOTE | 2025-01-20 09:05 | MEDREC ---
FORMERLY [facility], [facility] Intervention Section I FORMERLY [facility], [facility] Intervention: Review courses of therapy (QTc = 537, consider changing levofloxacin to doxycycline) RIYA JOSÉ PHARMACIST Jan 20, 2025 09:05
[2025-01-20] MEDS: ALBUTEROL SULF 2.5 MG/0.5ML(0.5%) NEB SOLN NEB PRN (09:06)
[2025-01-20] MEDS: IPRATROPIUM BROM 0.5 MG/2.5ML INH SOL NEB PRN (09:06)
[2025-01-20] MEDS: SPIRONOLACTONE 25 MG TAB PO SCH (09:35)
[2025-01-20] MEDS: EMPAGLIFLOZIN 10 MG TAB PO SCH (09:36)
[2025-01-20] MEDS: LISINOPRIL 20 MG TAB PO SCH (09:36)
--- NOTE | 2025-01-20 11:27 | DVHCONRES ---
Date Seen: Jan 20, 2025 Resident Creating Document: BAILEE ASENCIO RESIDENT Referring Physician DA JIANG Reason for Consultation elevated trop History of Present Illness * Chief concern: Worsening dyspnea for ~1 month, markedly worse over the last 3 days with chest tightness; intermittent non-productive cough. * Today: On 2 L NC with SpO? 99%. Reports orthopnea and fatigue. Endorses anxiety; primary team addressing active suicidal statements and safety. Medication adherence over the last few days is uncertain (chart suggests missed doses; patient currently reports taking meds). No new chest pain distinct from baseline pressure. * Relevant history: End-stage dilated cardiomyopathy with EF 15% (11/04/24), LV apical thrombus <1 cm, severe MR, severe TR, moderate RV dysfunction; COPD; HTN; DM2; AFib (on apixaban). Prior admission 11/04/24 for ADHF with type 2 AZ, pneumonia, VIVIANA, transaminitis; hospice previously discussed. Brief gist of [place] hospital course (progress/treatments/labs/imaging): * Hemodynamics soft but stable (SBP 50574; HR variable 77339; RR 1825). * Congestion persists: CXR with cardiomegaly and pulmonary vascular congestion; possible pleural effusions. * Labs notable for BNP >5000, lactate 4.5 (persistent), Na 132, K 5.4, BUN 60 / Cr 1.94 (GFR 38), AST/ALT/ALP 400/209/257, WBC 13.3 (N% 89.8), D-dimer 2.74; hs- troponin 600/572/537 ([id number], consistent with type 2 demand). * No new ischemic ECG changes (baseline LBBB). * Receiving bronchodilators and levofloxacin from primary team; on home apixaban . Todays Cardiology Plan (high-level): cautious IV diuresis; hold/adjust GDMT in setting of hypoperfusion/VIVIANA/hyperkalemia; continue therapeutic anticoagulation for LV thrombus; avoid invasive coronary/valvular interventions; palliative/hospice conversation supported. Past Medical History End-stage HFrEF (EF 15%), LV apical thrombus, AFib, severe MR/TR, moderate RV dysfunction, COPD, HTN, DM2, prior type AZ, CKD (eGFR ~38). Past Surgical History No recent cardiac procedures. Family History: Patient reports no known family medical history. Social History Unhoused; prior stimulant use; limited outpatient follow-up capacity. Allergies: Coded Allergies: Penicillins (Verified Allergy, Unknown, 11/03/24) Home Meds Active Scripts Lisinopril (Lisinopril) 20 Mg Tab, 1 TAB PO DAILY, #30 TAB 5 Refills Prov:FIDEL BROWN MD 11/06/24 Apixaban Base (ELIQUIS) 5 Mg Tab, 5 MG PO BID, #60 TAB Prov:FIDEL BROWN MD 11/06/24 Carvedilol (COREG) 3.125 Mg Tab, 3.125 MG PO BID, #60 TAB Prov:FIDEL BROWN MD 11/06/24 Furosemide (Lasix) 40 Mg Tab, 40 MG PO DAILY, #30 TAB Prov:FIDEL BROWN MD 11/06/24 Azithromycin (Azithromycin) 500 Mg Tab, 1 TAB PO DAILY, #7 TAB Prov:FIDEL BROWN MD 11/06/24 Atorvastatin Calcium (Lipitor) 40 Mg Tab, 1 TAB PO DAILY, #30 TAB 5 Refills Prov:FIDEL BROWN MD 11/06/24 Empagliflozin (Jardiance) 10 Mg Tab, 10 MG PO DAILY, #30 TAB Prov:FIDEL BROWN MD 11/06/24 Albuterol Sulfate (VENTOLIN MDI) 90 Mcg Ih, 90 MCG IN QID PRN, #1 INH Prov:FIDEL BROWN MD 11/06/24 Spironolactone (Aldactone) 25 Mg Tab, 1 TAB PO DAILY, #30 TAB 5 Refills Prov:FIDEL BROWN MD 11/06/24 Current Medications Current Medications Medications (Trade) Dose Ordered Sig/Simon Route PRN Reason Start Time Stop Time Status Last Admin Spironolactone (Aldactone) 25 mg DAILY PO 01/20/25 10:00 01/20/25 09:35 Lisinopril (Zestril Tablet) 20 mg DAILY PO 01/20/25 10:00 01/20/25 09:36 Apixaban (Eliquis) 5 mg BID PO 01/19/25 22:00 01/20/25 09:36 Atorvastatin Calcium (Lipitor) 40 mg HS PO 01/19/25 22:00 01/19/25 22:12 Aspirin 162 mg DAILY PO 01/20/25 10:00 01/20/25 09:35 Carvedilol (Coreg Tablet) 3.125 mg Q12HR PO 01/19/25 22:00 01/20/25 09:36 Empaglifozin (Jardiance) 10 mg DAILY PO 01/20/25 10:00 01/20/25 09:36 Furosemide (Lasix Injection) 20 mg BIDD IV 01/20/25 06:00 01/20/25 06:35 Albuterol (Ventolin Medneb) 2.5 mg Q6HPRN PRN NEB SHORTNESS OF BREATH 01/19/25 19:45 01/20/25 09:06 Ipratropium [place] (Atrovent Medneb) 0.5 mg Q6HPRN PRN NEB SHORTNESS OF BREATH 01/19/25 19:45 01/20/25 09:06 Levofloxacin 50 ml @ 50 mls/hr Q24H IV 01/20/25 17:00 Temazepam (Restoril) 15 mg QHSP PRN PO FOR INSOMNIA 01/19/25 19:45 01/20/25 00:21 Ondansetron HCl (Zofran) 4 mg Q4HP PRN IV NAUSEA / VOMITING 01/19/25 19:45 Acetaminophen (Tylenol Tablet) 650 mg Q6HP PRN PO PAIN SCALE 1-3 OR TEMP>100.4 01/19/25 19:45 Nitroglycerin (Ntrostat Sublingual) 0.4 mg Q5MINP PRN SL FOR CHEST PAIN 01/19/25 19:45 Morphine Sulfate 2 mg Q30M PRN IV FOR CHEST PAIN 01/19/25 19:45 Review of Systems * Constitutional: Fatigue; no fever reported. * Cardiovascular: Dyspnea at rest and with minimal exertion, orthopnea, no syncope. * Respiratory: Shortness of breath; no hemoptysis; cough non-productive. * GI: Anorexia; no hematemesis/melena reported. * Neuro/Psych: Anxiety; active suicidal ideation (managed by primary/psychiatry). Vital Signs Vital Signs Date Time Temp Pulse Resp B/P (MAP) Pulse Ox O2 Delivery O2 Flow Rate FiO2 01/20/25 10:00 96 Nasal Cannula 2.0 01/20/25 10:00 28 01/20/25 09:36 99 113/83 01/20/25 09:25 25 01/20/25 05:00 97.5 97.5 Physical Exam * General: Ill-appearing, tachypneic, speaking in short phrases. * Cardiac: Laterally displaced PMI; * Lungs: Bibasilar crackles; diminished at bases * Abdomen: Soft; nontender. * Extremities: Cool; 12+ pitting edema bilaterally. * Neuro/Psych: Alert; anxious; endorses suicidality (primary/psych managing safety). Labs/Diagnostic Data Labs Test 01/20/25 08:00 01/19/25 21:16 01/19/25 19:13 01/19/25 17:38 Range/Units Sodium Level 132 L 136-145 mmol/L Potassium Level 5.4 H 3.5-5.1 mmol/L Chloride Level 96 L 98-107 mmol/L Carbon Dioxide Level 24 20-31 mmol/L Anion Gap 12 5-15 Blood Urea Nitrogen 60 #H 9-23 mg/dL Creatinine 1.94 H 0.700-1.30 mg/dL Glomerular Filtration Rate Calc 38 >90 mL/min BUN/Creatinine Ratio 30.9 H 10.0-20.0 Serum Glucose 254 H 74-106 mg/dL Calcium Level 9.0 8.7-10.4 mg/dL Troponin I High Sensitivity 572 *H </=54 ng/L Lactic Acid Level 4.0 *H 0.4-2.0 mmol/L White Blood Count 13.3 H 4.4-10.8 10^3/uL Red Blood Count 5.20 4.5-5.90 10^6/uL Hemoglobin 14.6 13.5-17.5 g/dL Hematocrit 44.8 41.0-53.0 % Mean Corpuscular Volume 86.3 80.0-100.0 fL Mean Corpuscular Hemoglobin 28.2 28.0-32.0 pg Mean Corpuscular Hemoglobin Concent 32.7 32.0-36.0 g/dL Red Cell Distribution Width 21.0 H 11.8-14.3 % Platelet Count 141 140-450 10^3/uL Mean Platelet Volume 10.0 6.9-10.8 fL Neutrophils (%) (Auto) 89.8 H 37.0-80.0 % Lymphocytes (%) (Auto) 2.2 L 10.0-50.0 % Monocytes (%) (Auto) 7.3 0.0-12.0 % Eosinophils (%) (Auto) 0.1 0.0-7.0 % Basophils (%) (Auto) 0.6 0.0-2.0 % Neutrophils # (Auto) 11.9 H 1.6-8.6 10 ^3/uL Lymphocytes # (Auto) 0.3 L 0.4-5.4 10 ^3/uL Monocytes # (Auto) 1.0 0-1.3 10 ^3/uL Eosinophils # (Auto) 0 0-0.8 10 ^3/uL Basophils # (Auto) 0.1 0-0.2 10 ^3/uL Nucleated Red Blood Cells 0.1 % D-Dimer, Quantitative 2.74 H 0.0-0.49 mg/L FEU Total Bilirubin 3.1 H 0.2-1.0 mg/dL Aspartate Amino Transferase (AST) 400 H 13-40 U/L Alanine Aminotransferase (ALT) 209 H 7-40 U/L Alkaline Phosphatase 257 H 46-116 U/L B-Type Natriuretic Peptide > 5000.00 0-100 pg/mL Total Protein 6.9 5.7-8.2 g/dL Albumin 3.8 3.2-4.8 g/dL Assessment * Acute on chronic systolic heart failure with pulmonary congestion (ruled-in by exam, CXR, BNP>5000, response to diuresis). * Dilated cardiomyopathy, end-stage (EF 15%). * Left ventricular mural thrombus (<1 cm) anticoagulation indicated. * Atrial fibrillation, unspecified (history; intermittent RVR). * Type 2 myocardial infarction (supplydemand mismatch; no new ischemic ECG changes; flat/down-trending troponin). * Severe MR / Severe TR with moderate RV dysfunction. * VIVIANA on CKD stage 3b (GFR ~38). CC * Hyperkalemia (K 5.4). CC * Hyponatremia (Na 132). CC * Lactic acidosis (lactate 4.5). CC * Elevated transaminases (congestive/ischemic hepatopathy). CC * Homelessness (social determinant impacting care). * Long-term (current) anticoagulation use. * Medication underuse/nonadherence impacting disease control Plan/Recommendation 1) Acute on chronic decompensated HFrEF (EF 15%) with persistent hypoperfusion and congestion * Status/severity: NYHA IV, ACC/AHA Stage D. Clinical and biochemical hypoperfusion (lactate 4.5), VIVIANA, hepatic injury * Etiology/triggers: Likely medication under-use; possible infection; tachyarrhythmia; dietary/volume indiscretion. * Plan: * Diuresis: Furosemide 20 mg bid IV * Hemodynamics: Strict I/O, daily weights, [place]ter if needed for accurate output; telemetry & continuous pulse-ox. * GDMT adjustments (temporarily): * Hold lisinopril and spironolactone today (K 5.4, VIVIANA). Resume after potassium improves * continue carvedilol * Continue empagliflozin 10 mg * Electrolyte targets: K 4.04.5, Mg >2.0; replete Mg empirically 2 g IV if not contraindicated. * Diet: 2 g Na restriction, fluid 1.5 L/day. * Monitoring: BMP/Mg q12h while diuresing lactate q68h until <2. * o Type 1 AZ less likely as there are no new ischemic ECG changes; flat troponin trend; supply-demand context). 2) Left ventricular apical thrombus (<1 cm) with AFib (stroke risk) * Plan: * Continue therapeutic anticoagulation. Given social situation and monitoring barriers, apixaban continuation is reasonable inpatient; * Bleeding/safety: Coordinate with Psychiatry/Primary re: self-harm risk; maintain 1:1 observation. If bleeding/self-injury risk escalates, reassess agent/risk tolerance in multidisciplinary forum. 3) Type 2 myocardial infarction / acute myocardial injury (supplydemand mismatch) * Rationale: Troponin 600?572?537 with LBBB unchanged; no culprit features; hypoxia/anemia not present but low output and infection likely drivers. * Plan: No cath due to psychosocial instability, and anticipated non-adherence. Continue high-intensity statin. Continue aspirin 5) VIVIANA on CKD (eGFR 38) * Plan: Decongest with IV diuretics as above; hold ACEi/MRA today; avoid nephrotoxins and IV contrast; adjust renally-cleared meds; repeat BMP q12h and daily thereafter. 6) Electrolyte abnormalities Hyperkalemia (5.4), hyponatremia (132) * Plan: Hold ACEi/MRA; loop diuresis; low-K diet; consider sodium zirconium cyclosilicate 10 g PO now if K persists >5.2; trend BMP. Hyponatremia expected with advanced HF ? treat via decongestion and fluid restriction. 7) Congestive hepatopathy / ischemic hepatitis (transaminitis) * Plan: Optimize forward flow and venous decongestion; trend LFTs daily. Avoid hepatotoxic agents; if considering amiodarone for AF, weigh hepatic risk carefully. 10) Goals of care / disposition (cardiology perspective) * End-stage Stage D HF with repeated decompensation,, and significant psychosocial barriers. No coronary angiography or valvular intervention is planned. Strongly support palliative care consult and renewed hospice discussion with patient when psychiatrically safe and with surrogate if available. Thank you for the consult we are signing off on this patient. Case discussed in detail with the attending physician, including the clinical presentation, diagnostic workup, and comprehensive management plan. The patient was present for the discussion and demonstrated understanding of his condition and the proposed plan. Plan discussed with: Patient (RN) Visit Coding Cardiology RES Date of Service: Jan 20, 2025 Billing Provider: JATINDER CHUNG Sr., MD Cardiology Common Codes: [id number] INP/OBS CARE (High) BAILEE ASENCIO RESIDENT Jan 20, 2025 11:27
--- NOTE | 2025-01-20 13:59 | DVHINCON2 ---
Date of Service if different f: Jan 20, 2025 Consultation ([facility]) Consulting Physician: EDNA WILLIAMSON MD Labs Laboratory Tests Test 01/19/25 17:38 01/19/25 19:13 01/19/25 21:16 01/20/25 08:00 White Blood Count 13.3 10^3/uL (4.4-10.8) Red Blood Count 5.20 10^6/uL (4.5-5.90) Hemoglobin 14.6 g/dL (13.5-17.5) Hematocrit 44.8 % (41.0-53.0) Mean Corpuscular Volume 86.3 fL (80.0-100.0) Mean Corpuscular Hemoglobin 28.2 pg (28.0-32.0) Mean Corpuscular Hemoglobin Concent 32.7 g/dL (32.0-36.0) Red Cell Distribution Width 21.0 % (11.8-14.3) Platelet Count 141 10^3/uL (140-450) Mean Platelet Volume 10.0 fL (6.9-10.8) Neutrophils (%) (Auto) 89.8 % (37.0-80.0) Lymphocytes (%) (Auto) 2.2 % (10.0-50.0) Monocytes (%) (Auto) 7.3 % (0.0-12.0) Eosinophils (%) (Auto) 0.1 % (0.0-7.0) Basophils (%) (Auto) 0.6 % (0.0-2.0) Neutrophils # (Auto) 11.9 10 ^3/uL (1.6-8.6) Lymphocytes # (Auto) 0.3 10 ^3/uL (0.4-5.4) Monocytes # (Auto) 1.0 10 ^3/uL (0-1.3) Eosinophils # (Auto) 0 10 ^3/uL (0-0.8) Basophils # (Auto) 0.1 10 ^3/uL (0-0.2) Nucleated Red Blood Cells 0.1 % D-Dimer, Quantitative 2.74 mg/L FEU (0.0-0.49) Total Bilirubin 3.1 mg/dL (0.2-1.0) Aspartate Amino Transf (AST/SGOT) 400 U/L (13-40) Alanine Aminotransferase (ALT/SGPT) 209 U/L (7-40) Alkaline Phosphatase 257 U/L (46-116) B-Type Natriuretic Peptide > 5000.00 pg/mL (0-100) Total Protein 6.9 g/dL (5.7-8.2) Albumin 3.8 g/dL (3.2-4.8) Lactic Acid Level 4.0 mmol/L (0.4-2.0) Troponin I High Sensitivity 572 ng/L (</=54) Sodium Level 132 mmol/L (136-145) Potassium Level 5.4 mmol/L (3.5-5.1) Chloride Level 96 mmol/L (98-107) Carbon Dioxide Level 24 mmol/L (20-31) Anion Gap 12 (5-15) Blood Urea Nitrogen 60 mg/dL (9-23) Creatinine 1.94 mg/dL (0.700-1.30) Glomerular Filtration Rate Calc 38 mL/min (>90) BUN/Creatinine Ratio 30.9 (10.0-20.0) Serum Glucose 254 mg/dL (74-106) Calcium Level 9.0 mg/dL (8.7-10.4) Appetite: Good Appearance: Older than stated age, Disheveled Psychomotor activity: Agitated Behavioral: Cooperative Eye contact: Limited Speech: Pressured, Rapid, Confused Affect: Mood Congruent Mood: Anxious, Elevated Thought processes: Preservative Suicidal ideations: Present (active) Homicidal ideations: Absent Orientation: Person, Place, Time Memory intact: Recent Intellect: Average Abstractability: Marginal Concentration: Limited Attention: Limited Judgement: Poor Insight: Limited Vitals Vital Signs Date Time Temp Pulse Resp B/P (MAP) Pulse Ox O2 Delivery O2 Flow Rate FiO2 01/20/25 12:35 97.8 90 22 103/70 (81) 97 97.8 01/20/25 10:00 Nasal Cannula 2.0 01/20/25 10:00 28 Current medications Current Medications Medications Dose Ordered Sig/Simon Route Start Time Stop Time Status Last Admin Dose Admin Apixaban 5 mg BID PO 01/19/25 22:00 01/20/25 09:36 5 MG Atorvastatin Calcium 40 mg HS PO 01/19/25 22:00 01/19/25 22:12 40 MG Aspirin 162 mg DAILY PO 01/20/25 10:00 01/20/25 09:35 162 MG Carvedilol 3.125 mg Q12HR PO 01/19/25 22:00 01/20/25 09:36 3.125 MG Empaglifozin 10 mg DAILY PO 01/20/25 10:00 01/20/25 09:36 10 MG Furosemide 20 mg BIDD IV 01/20/25 06:00 01/20/25 06:35 20 MG Albuterol 2.5 mg Q6HPRN PRN NEB 01/19/25 19:45 01/20/25 09:06 2.5 MG Ipratropium [place] 0.5 mg Q6HPRN PRN NEB 01/19/25 19:45 01/20/25 09:06 0.5 MG Levofloxacin 50 ml @ 50 mls/hr Q24H IV 01/20/25 17:00 Temazepam 15 mg QHSP PRN PO 01/19/25 19:45 01/20/25 00:21 15 MG Ondansetron HCl 4 mg Q4HP PRN IV 01/19/25 19:45 Acetaminophen 650 mg Q6HP PRN PO 01/19/25 19:45 Nitroglycerin 0.4 mg Q5MINP PRN SL 01/19/25 19:45 Morphine Sulfate 2 mg Q30M PRN IV 01/19/25 19:45 Haloperidol Lactate 10 mg Q6HPRN PRN IM 01/20/25 11:45 Medication adjusted: Yes Labs ordered: No Diagnosis: major depressive disorder, r/o delirium Plan : This is a 64-year-old male here with multiple medical problems which is contributing to his depression recommend 5150hold DTS and continue 1:1 sitter for safety. Start lexapro 5mg po daily Recommend to re-evaluate v transfer to inpatient psychiatric facility after medical clearance. History of Present Illness Reason for Consult : patient reporting suicidal ideation, he wants to . He has periods of confusion, no aggression or agitation. HPI : This is a 64-year-old male admitted here for chest pain and SOB. Patient reported worsening respiratory symptoms 3 days prior to hospitalization. Patient is evaluated via telepsychiatry. On exam, patient is sitting up in bed with oxygen on, frail-appearing. He is very talkative. He reports not wanting to live because he is miserable and "wore out". he reports "my butt leaks every day, i cant have sex, all my family has ." He no longer sees the point in continuing to live. He denies any plan or intent for suicide. He does feel hopeless, helpless and wishes he was due to his medical conditions. He denies any homicidal thoughts. He denies auditory/visual hallucinations or paranoid thoughts. He did not appear to respond to unseen stimuli. He reports sleeping well with medications here. He also reports good appetite. He has some periods of confusion, such as reporting he is 74 years and born in 1959. He is able to identify current year, president and reasons for hospitali zation here. He is able able to list his medical problems. Past Psychiatric History : He denies prior psychiatric diagnoses, holds or inpatient hospitals. He also denies prior suicide attempts or trials of psychotropic medications. He denies any current outpatient mental health follow up Past Medical History : He reports hx of COPD, HTN, heart failure, diabetes, Social History : He reports renting a room in a house. He reports having a [id number], never . He reports she . He denies any children or social support. He denies drugs or alcohol use. He has hx of smoking nicotine. He denies any known family history. FOREIGN GARCIA DNP Jan 20, 2025 13:59
[2025-01-20] MEDS: HALOPERIDOL LACTATE 5 MG/ML INJ VIAL IM PRN (14:49)
--- NOTE | 2025-01-20 16:08 | DVHPN2 ---
Subjective Patient not doing well, still suicidal/possible meth abuse effects Reviewed: H&P Changes from previous H/P or p: No Changes General: Per HPI Objective Vitals Vital Signs Date Time Temp Pulse Resp B/P (MAP) Pulse Ox O2 Delivery O2 Flow Rate FiO2 01/20/25 12:35 97.8 90 22 103/70 (81) 97 97.8 01/20/25 10:00 Nasal Cannula 2.0 01/20/25 10:00 28 Intake/Output Intake and Output 01/20/25 07:00 Intake Total 600 ml Balance 600 ml Intake Oral 600 ml # Voids 1 Exam Gen: 64-year-old male in mild Skin: Warm, dry, normal color and texture, no rash. HEENT: Normocephalic atraumatic, mucous membranes moist and pink. Neck: Cervical and supraclavicular nodes normal without enlargement, trachea is midline, thyroid gland is normal without masses. Pulmonary: Clear to auscultation and percussion bilaterally. Cardiac: Regular rate and rhythm. No murmur Abdomen: Soft, nontender, nondistended, bowel sounds present all 4 quadrants, no guarding, no rigidity, no organomegaly. Extremities: No cyanosis, clubbing, no edema Neuro: Cranial nerves II through XII grossly intact, normal affect and speech, no focal motor deficits. Medications Current Medications Medications Dose Ordered Sig/Simon Route Start Time Stop Time Status Last Admin Dose Admin Apixaban 5 mg BID PO 01/19/25 22:00 01/20/25 09:36 5 MG Atorvastatin Calcium 40 mg HS PO 01/19/25 22:00 01/19/25 22:12 40 MG Aspirin 162 mg DAILY PO 01/20/25 10:00 01/20/25 09:35 162 MG Carvedilol 3.125 mg Q12HR PO 01/19/25 22:00 01/20/25 09:36 3.125 MG Empaglifozin 10 mg DAILY PO 01/20/25 10:00 01/20/25 09:36 10 MG Furosemide 20 mg BIDD IV 01/20/25 06:00 01/20/25 06:35 20 MG Albuterol 2.5 mg Q6HPRN PRN NEB 01/19/25 19:45 01/20/25 09:06 2.5 MG Ipratropium [place] 0.5 mg Q6HPRN PRN NEB 01/19/25 19:45 01/20/25 09:06 0.5 MG Levofloxacin 50 ml @ 50 mls/hr Q24H IV 01/20/25 17:00 Temazepam 15 mg QHSP PRN PO 01/19/25 19:45 01/20/25 00:21 15 MG Ondansetron HCl 4 mg Q4HP PRN IV 01/19/25 19:45 Acetaminophen 650 mg Q6HP PRN PO 01/19/25 19:45 Nitroglycerin 0.4 mg Q5MINP PRN SL 01/19/25 19:45 Morphine Sulfate 2 mg Q30M PRN IV 01/19/25 19:45 Haloperidol Lactate 10 mg Q6HPRN PRN IM 01/20/25 11:45 01/20/25 14:49 10 MG Lorazepam 2 mg Q4HPRN PRN IV 01/20/25 15:15 Laboratory Results Laboratory Tests 01/19/25 17:38 01/20/25 08:00 Chemistry Test 01/19/25 17:38 01/20/25 08:00 Albumin 3.8 g/dL (3.2-4.8) Calcium Level 9.4 mg/dL (8.7-10.4) 9.0 mg/dL (8.7-10.4) Total Protein 6.9 g/dL (5.7-8.2) Coagulation Test 01/19/25 17:38 D-Dimer, Quantitative 2.74 mg/L FEU (0.0-0.49) H Cardiac Markers Test 01/19/25 17:38 B-Type Natriuretic Peptide > 5000.00 pg/mL (0-100) LFT Test 01/19/25 17:38 Alanine Aminotransferase (ALT) 209 U/L (7-40) H Alkaline Phosphatase 257 U/L (46-116) H Aspartate Amino Transferase (AST) 400 U/L (13-40) H Total Bilirubin 3.1 mg/dL (0.2-1.0) H Labs and/or images reviewed: Labs reviewed by me, Image(s) reviewed by me Assessment/Plan Assessment/Plan 64-year-old male presents for evaluation of shortness for breath. Patient endorses a one month history of worsening shortness for breath. He states symptoms became worse over the past three days with associated chest tightness and a nonproductive cough. He states not taking his medications over the past couple of days. Denies fever or chills. No other acute complaints reported. 01/20: Patient is belligerent agitated pulling lines, started Ativan and Haldol prn after needed for agitation control. Patient's CHF exacerbation, unable to get UA likely patient has an acute episode of drug, until then continuing diuresis and starting FF meds Lasix, Aldactone, Jardiance,. Cardiology consulted. Diagnosis: Acute on chronic respiratory failure Acute CHF exacerbation , systolic and diastolic likely Acute drug abuse episode likely, history of methamphetamine abuse History of methamphetamine abuse Suicidal ideations Leukocytosis Neutrophilia NSTEMI, likely type 2 Lactic acidosis VIVIANA due to VMN Hyperkalemia Tachycardia Tachypnea COPD Noncompliant Plan: Agitation control Haldol and Ativan Psychiatry consult for suicide ideations Lasix IV Eliquis 5 b.i.d. Aspirin 162 Lipitor 40 Coreg 3 b.i.d. Jardiance 10 Lasix 20 IV b.i.d. Levaquin 250 daily Tele Full code Plan discussed with: Patient My Orders Orders - EDNA WILLIAMSON MD Procedure Category Date Status Time Haloperidol Lactate PHA 01/20/25 In Process Injection (Haldol) 11:45 *Tele Psych Consult CONS 01/20/25 Transmitted 11:37 Drug Screen LAB 01/20/25 Logged 13:55 Urinalysis LAB 01/20/25 Logged 13:55 Lorazepam 2mg/Ml Inj PHA 01/20/25 In Process (Ativan Inj) 15:15 Stool Wbc LAB 01/20/25 Logged 15:08 Clostridium Difficile JUAN 01/20/25 Uncollected Toxin 15:08 Date of Service: Jan 20, 2025 Billing Provider: EDNA WILLIAMSON MD Common Visit Codes: [id number] INP/OBS CARE(HIGH) EDNA WILLIAMSON MD Jan 20, 2025 16:08
[2025-01-20] MEDS: LORazepam 2MG/ML-1ML VIAL IV PRN (20:34)
[2025-01-20] MEDS: FLUMAZENIL 0.1 MG/ML INJ 10ML MDV IV ONE ×2 (21:30→21:31)
[2025-01-20] MEDS ORDERED: FLUMAZENIL 0.1 MG/ML INJ 10ML MDV IV ONE (21:30)
[2025-01-20] MEDS: FUROSEMIDE 20 MG/2 ML VIAL ONE (21:32)
[2025-01-20 21:40] LABS: Base Excess -1.7 mmol/L (-2.0-3.0)
[2025-01-20] MEDS: FUROSEMIDE 20 MG/2 ML VIAL IV ONE (21:44)
[2025-01-20] MEDS: methylPREDNISolone SOD SUCC 125 MG/2 ML VL ONE (21:44)
[2025-01-20] MEDS ORDERED: methylPREDNISolone SOD SUCC 125 MG in SODIUM CHL 0.9% 100 ML IV ONE (21:45)
[2025-01-20] MEDS: FAMOTIDINE (10MG/ML) 2ML VL IV ONE (21:45)
--- NOTE | 2025-01-20 21:48 | DVH ---
CHEST RADIOGRAPH Indication: Volume overload Technique: Single frontal view of the chest was obtained Comparison: XY CHEST PORTABLE on DOS: 01/19/25, XY CHEST XRAY 1 VIEW on DOS: 11/04/24, XY CHEST PORTABLE on DOS: 11/03/24 FINDINGS: Lines and Tubes: None Lungs: Increased opacification right mary thorax may represent airspace disease or pleural effusion Pleura: No effusion. No pneumothorax. Cardiomediastinal contours: Cardiomegaly Bones: No acute osseous abnormality. IMPRESSION: 1. Increased opacification right mary thorax may represent airspace disease or pleural effusion.
[2025-01-20] MEDS: METHYLPREDNISOLONE SOD SUCC IV SCH (21:52)
[2025-01-20] MEDS: SODIUM CHL 0.9% IV SCH (21:52)
[2025-01-20 21:55] LABS: Hematocrit 47.8 % (41.0-53.0); Hemoglobin 15.3 g/dL (13.5-17.5); Mean Corpuscular Hemoglobin 28.2 pg (28.0-32.0); Mean Corpuscular Volume 88.2 fL (80.0-100.0); Nucleated Red Blood Cells % 0.2 %
[2025-01-20] MEDS: FAMOTIDINE (10MG/ML) 2ML VL IV SCH (22:00)
[2025-01-20] MEDS: methylPREDNISolone SOD SUCC 125 MG/2 ML VL IV ONE (22:11)
[2025-01-20 22:13] LABS: Calcium 9.1 mg/dL (8.7-10.4); Carbon Dioxide 23 mmol/L (20-31)
[2025-01-20 22:14] LABS: Albumin 3.9 g/dL (3.2-4.8); Anion Gap 11 (5-15); BUN/Creatinine Ratio 20.9 (10.0-20.0); Magnesium 2.2 mg/dL (1.6-2.6); Total Protein 7.1 g/dL (5.7-8.2)
[2025-01-20 22:15] LABS: Alanine Aminotransferase 197 U/L (7-40); Alkaline Phosphatase 260 U/L (46-116); Bilirubin, Total 2.3 mg/dL (0.2-1.0); Blood Urea Nitrogen 39 mg/dL (9-23); Chloride 98 mmol/L (98-107); Glucose 172 mg/dL (74-106); Sodium 132 mmol/L (136-145)
[2025-01-20 22:17] LABS: Potassium 6.2 mmol/L (3.5-5.1)
[2025-01-20] MEDS: SODIUM ZIRCONIUM CYCL 10 GM PAK PO ONE (22:30)
--- NOTE | 2025-01-20 22:44 | ECG ---
[facility] Test Date: 2025-01-20 Test Time: 22:42:30 Pat Name: ZEKE FLORIAN Department: Respiratoy Room: 0232T A Gender: M Supervisor Braiding: CIERA : 1960 Requested By: JESSICA OWEN Order Number: [id number] Reading MD: Adonis Plaza Measurements Intervals [place] Rate: 87 P: 66 NC: 204 QRS: 264 QRSD: 181 T: 22 QT: 454 QTc: 547 Interpretive Statements Sinus rhythm Nonspecific IVCD with LAD Probable left ventricular hypertrophy Electronically Signed On 01-24-2025 18:20:58 PDT by Adonis Plaza Please click the below link to view image of tracing.
[2025-01-20] MEDS: ALBUTEROL SULF 2.5 MG/0.5ML(0.5%) NEB SOLN NEB ONE (22:56)
[2025-01-20] MEDS: CALCIUM GLUC 1,000mg/50ml-NS 50 ML IV ONE (23:11)
[2025-01-20 23:34] LABS: Urine Protein, UAD TRACE (Negative)
[2025-01-20 23:35] LABS: Benzodiazephine Screen, Urine Neg (NEGATIVE); Opiate Scree,Urine Pos (NEGATIVE); Phencyclidine Screen, Urine Neg (NEGATIVE)
[2025-01-20 23:37] LABS: Amphetamine Screen, Urine Neg (NEGATIVE); Barbiturate Scree,Urine Neg (NEGATIVE); Cannabinoid Screen, Urine Neg (NEGATIVE); Cocaine Screen, Urine Neg (NEGATIVE)
[2025-01-21] VITALS (12 sets, daily range): BP systolic 116–128; BP diastolic 39–98; PULSE 81–104; RESP 20–27; TEMP 97.4–98.4; O2SAT 92–100
[2025-01-21] MEDS: SODIUM BICARB 8.4% 50Meq/50ml SYR INJ IV ONE (00:39)
[2025-01-21] MEDS: DEXTROSE (50%) 50ML SYRG IV ONE (00:51)
[2025-01-21] MEDS: InsuLIN REG 1unit/0.01ml Soln (100units/ml) IV ONE (01:16)
[2025-01-21 06:22] LABS: Hematocrit 45.1 % (41.0-53.0); Hemoglobin 14.6 g/dL (13.5-17.5); Mean Corpuscular Hemoglobin 27.8 pg (28.0-32.0); Mean Corpuscular Volume 86.2 fL (80.0-100.0); Nucleated Red Blood Cells % 0.2 %
[2025-01-21 06:51] LABS: Albumin 3.7 g/dL (3.2-4.8); Anion Gap 13 (5-15); BUN/Creatinine Ratio 25.9 (10.0-20.0); Calcium 9.5 mg/dL (8.7-10.4); Carbon Dioxide 27 mmol/L (20-31); Potassium 5.0 mmol/L (3.5-5.1); Total Protein 6.8 g/dL (5.7-8.2)
[2025-01-21 06:54] LABS: Alanine Aminotransferase 179 U/L (7-40); Alkaline Phosphatase 241 U/L (46-116); Bilirubin, Total 2.6 mg/dL (0.2-1.0); Blood Urea Nitrogen 45 mg/dL (9-23); Chloride 95 mmol/L (98-107); Glucose 178 mg/dL (74-106); Sodium 135 mmol/L (136-145)
--- NOTE | 2025-01-21 12:40 | DVHPN2 ---
Subjective Patient not doing well, still suicidal/possible meth abuse effects Reviewed: H&P Changes from previous H/P or p: No Changes General: Per HPI Objective Vitals Vital Signs Date Time Temp Pulse Resp B/P (MAP) Pulse Ox O2 Delivery O2 Flow Rate FiO2 01/21/25 10:00 93 Nasal Cannula 2.0 01/21/25 10:00 28 01/21/25 09:00 97.7 101 20 127/39 (68) 97.7 Intake/Output Intake and Output 01/21/25 07:00 Intake Total 4450 ml Output Total 1100 ml Balance 3350 ml Intake Oral 4450 ml Output Urine Total 1100 ml # Voids 10 # Bowel Movements 11 Exam Gen: 64-year-old male in mild Skin: Warm, dry, normal color and texture, no rash. HEENT: Normocephalic atraumatic, mucous membranes moist and pink. Neck: Cervical and supraclavicular nodes normal without enlargement, trachea is midline, thyroid gland is normal without masses. Pulmonary: Clear to auscultation and percussion bilaterally. Cardiac: Regular rate and rhythm. No murmur Abdomen: Soft, nontender, nondistended, bowel sounds present all 4 quadrants, no guarding, no rigidity, no organomegaly. Extremities: No cyanosis, clubbing, no edema Neuro: Cranial nerves II through XII grossly intact, normal affect and speech, no focal motor deficits. Medications Current Medications Medications Dose Ordered Sig/Simon Route Start Time Stop Time Status Last Admin Dose Admin Apixaban 5 mg BID PO 01/19/25 22:00 01/20/25 09:36 5 MG Atorvastatin Calcium 40 mg HS PO 01/19/25 22:00 01/19/25 22:12 40 MG Aspirin 162 mg DAILY PO 01/20/25 10:00 01/20/25 09:35 162 MG Carvedilol 3.125 mg Q12HR PO 01/19/25 22:00 01/20/25 09:36 3.125 MG Empaglifozin 10 mg DAILY PO 01/20/25 10:00 01/20/25 09:36 10 MG Furosemide 20 mg BIDD IV 01/20/25 06:00 01/21/25 06:45 20 MG Albuterol 2.5 mg Q6HPRN PRN NEB 01/19/25 19:45 01/20/25 21:56 2.5 MG Ipratropium [place] 0.5 mg Q6HPRN PRN NEB 01/19/25 19:45 01/20/25 21:56 0.5 MG Levofloxacin 50 ml @ 50 mls/hr Q24H IV 01/20/25 17:00 Temazepam 15 mg QHSP PRN PO 01/19/25 19:45 01/20/25 00:21 15 MG Ondansetron HCl 4 mg Q4HP PRN IV 01/19/25 19:45 Acetaminophen 650 mg Q6HP PRN PO 01/19/25 19:45 Nitroglycerin 0.4 mg Q5MINP PRN SL 01/19/25 19:45 Morphine Sulfate 2 mg Q30M PRN IV 01/19/25 19:45 Haloperidol Lactate 10 mg Q6HPRN PRN IM 01/20/25 11:45 01/20/25 14:49 10 MG Lorazepam 2 mg Q4HPRN PRN IV 01/20/25 15:15 01/20/25 20:34 2 MG Famotidine 20 mg Q12HR IV 01/20/25 22:00 Laboratory Results Laboratory Tests 01/21/25 05:25 Chemistry Test 01/20/25 21:42 01/21/25 05:25 Albumin 3.9 g/dL (3.2-4.8) 3.7 g/dL (3.2-4.8) Calcium Level 9.1 mg/dL (8.7-10.4) 9.5 mg/dL (8.7-10.4) Magnesium Level 2.2 mg/dL (1.6-2.6) Total Protein 7.1 g/dL (5.7-8.2) 6.8 g/dL (5.7-8.2) Cardiac Markers Test 01/20/25 21:42 B-Type Natriuretic Peptide 3994.06 pg/mL (0-100) LFT Test 01/20/25 21:42 01/21/25 05:25 Alanine Aminotransferase (ALT) 197 U/L (7-40) H 179 U/L (7-40) H Alkaline Phosphatase 260 U/L (46-116) H 241 U/L (46-116) H Aspartate Amino Transferase (AST) 248 U/L (13-40) H 207 U/L (13-40) H Total Bilirubin 2.3 mg/dL (0.2-1.0) H 2.6 mg/dL (0.2-1.0) H HgA1c, TSH Test 01/21/25 02:29 Hemoglobin A1c 7.2 % A1C (<5.7) H Urinalysis Test 01/20/25 22:56 Urine Color Yellow (Yellow) Urine Clarity Clear (Clear) Urine pH 5.0 (5.0-9.0) Urine Specific [place] 1.014 (1.001-1.035) Urine Protein Trace (Negative) H Urine Ketones Negative (Negative) Urine Blood 1+ /uL (Negative) H Urine Nitrite Negative (Negative) Urine Bilirubin Negative (Negative) Urine Urobilinogen Normal mg/dL (Negative) Urine Leukocyte Esterase Negative /uL (Negative) Urine RBC 3 /hpf (0 - 3) Urine Microscopic WBC 5 /HPF (0-3) H Urine Squamous Epithelial Cells Few /hpf (<5) Urine Bacteria None seen /hpf (None Seen) Urine Hyaline Casts Few /lpf (0 - 2) Urine Glucose 4+ mg/dL (Normal) H Blood Gas Results Test 01/20/25 21:15 Arterial Blood pH 7.412 (7.350-7.450) FiO2 % 44.0 Labs and/or images reviewed: Labs reviewed by me, Image(s) reviewed by me Assessment/Plan Assessment/Plan 64-year-old male presents for evaluation of shortness for breath. Patient endorses a one month history of worsening shortness for breath. He states symptoms became worse over the past three days with associated chest tightness and a nonproductive cough. He states not taking his medications over the past couple of days. Denies fever or chills. No other acute complaints reported. 01/20: Patient is belligerent agitated pulling lines, started Ativan and Haldol prn after needed for agitation control. Patient's CHF exacerbation, unable to get UA likely patient has an acute episode of drug, until then continuing diuresis and starting FF meds Lasix, Aldactone, Jardiance,. Cardiology consulted. 01/21: Overnight patient agitated, requiring restraints, Nix was inserted, UDS only with opiates. This a.m. patient is lethargic tachypneic,. We will get ABG. Possibly this is drug withdrawal. Intubation was deferred overnight. Agitated, now fatigued. Patient did receive Haldol and Ativan to control agitation yesterday which will possibly contributing to this change. Patient continues to remain this way we will need CT head. - updates: patient agitates, phoebe LÓPEZ , hostile patient, remains acute toxic metabolic encephalopathic. continuing use haldol IM 1st line, 2nd line ativan. later patient pulls nix, traumatic removal, significant blood loss approx 100cc, urology at bedside helps insert difficult nix re-insertion. need more copmlete work-up for ALOC, slow diuresis as patient close euvolemia. patient screams with reinsertion of nix, abort ABG. good lung function. continue 5150 due to SI. Diagnosis: Acute on chronic respiratory failure Acute CHF exacerbation , systolic and diastolic likely Acute drug abuse episode likely, history of methamphetamine abuse History of methamphetamine abuse Suicidal ideations Leukocytosis Neutrophilia NSTEMI, likely type 2 Lactic acidosis VIVIANA due to VMN Hyperkalemia Tachycardia Tachypnea COPD Noncompliant Plan: Agitation control Haldol and Ativan Psychiatry consult for suicide ideations Lasix IV Eliquis 5 b.i.d. Aspirin 162 Lipitor 40 Coreg 3 b.i.d. Jardiance 10 Lasix 20 IV b.i.d. Levaquin 250 daily Tele Full code Plan discussed with: Patient My Orders Orders - EDNA WILLIAMSON MD Procedure Category Date Status Time Lorazepam 2mg/Ml Inj PHA 01/20/25 In Process (Ativan Inj) 15:15 Stool Wbc LAB 01/20/25 Logged 15:08 Clostridium Difficile JUAN 01/20/25 Uncollected Toxin 15:08 Blood Culture JUAN 01/20/25 In Process 16:03 Mrsa Screen JUAN 01/20/25 In Process 06:15 Date of Service: Jan 21, 2025 Billing Provider: EDNA WILLIAMSON MD Common Visit Codes: [id number] INP/OBS CARE(HIGH) EDNA WILLIAMSON MD Jan 21, 2025 12:40
[2025-01-21] MEDS: CITALOPRAM HYDROBR 20 MG TAB PO ONE (14:15)
--- NOTE | 2025-01-21 14:54 | DVHINCON2 ---
Date of service: Jan 21, 2025 Referring Physician Hospitalist Reason for Consultation Traumatic Salter removal resulting in gross hematuria History of Present Illness Patient is admitted for non issues and has an indwelling catheter for management of his CHF. Patient is apparently altered and pulled out his Salter catheter with balloon inflated. Unable to replace Salter catheter due to BPH. Family History: Patient reports no known family medical history. Allergies: Coded Allergies: Penicillins (Verified Allergy, Unknown, 11/03/24) Home Meds Active Scripts Lisinopril (Lisinopril) 20 Mg Tab, 1 TAB PO DAILY, #30 TAB 5 Refills Prov:FIDEL BROWN MD 11/06/24 Apixaban Base (ELIQUIS) 5 Mg Tab, 5 MG PO BID, #60 TAB Prov:FIDEL BROWN MD 11/06/24 Carvedilol (COREG) 3.125 Mg Tab, 3.125 MG PO BID, #60 TAB Prov:FIDEL BROWN MD 11/06/24 Furosemide (Lasix) 40 Mg Tab, 40 MG PO DAILY, #30 TAB Prov:FIDEL BROWN MD 11/06/24 Azithromycin (Azithromycin) 500 Mg Tab, 1 TAB PO DAILY, #7 TAB Prov:FIDEL BROWN MD 11/06/24 Atorvastatin Calcium (Lipitor) 40 Mg Tab, 1 TAB PO DAILY, #30 TAB 5 Refills Prov:FIDEL BROWN MD 11/06/24 Empagliflozin (Jardiance) 10 Mg Tab, 10 MG PO DAILY, #30 TAB Prov:FIDEL BROWN MD 11/06/24 Albuterol Sulfate (VENTOLIN MDI) 90 Mcg Ih, 90 MCG IN QID PRN, #1 INH Prov:FIDEL BROWN MD 11/06/24 Spironolactone (Aldactone) 25 Mg Tab, 1 TAB PO DAILY, #30 TAB 5 Refills Prov:FIDEL BROWN MD 11/06/24 Current Medications Current Medications Medications (Trade) Dose Ordered Sig/Simon Route PRN Reason Start Time Stop Time Status Last Admin Levofloxacin 50 ml @ 50 mls/hr Q24H IV 01/20/25 17:00 Lorazepam (Ativan Inj) 2 mg Q4HPRN PRN IV ANXIETY 01/20/25 15:15 01/20/25 20:34 Famotidine (Pepcid Injection) 20 mg Q12HR IV 01/20/25 22:00 Methylprednisolone Sodium Succinate 40 mg/Sodium Chloride 100 ml @ 200 mls/hr TID IV 01/20/25 22:00 01/21/25 07:10 DC Citalopram Hydrobromide (CeleXA TABLET) 10 mg DAILY PO 01/22/25 10:00 UNV Lorazepam (Ativan Inj) 1 mg Q2HP PRN IV ANXIETY 01/21/25 14:15 UNV Vital Signs Vital Signs Date Time Temp Pulse Resp B/P (MAP) Pulse Ox O2 Delivery O2 Flow Rate FiO2 01/21/25 10:00 93 Nasal Cannula 2.0 01/21/25 10:00 28 01/21/25 09:00 97.7 101 20 127/39 (68) 97.7 Physical Exam Patient was given IV Haldol. Lidocaine gel applied to the urethra. [address] catheter with a catheter guide was required to access the bladder. 30 cc balloon inflated. Irrigation port plugged. May use for CBI if needed. Labs/Diagnostic Data Labs Test 01/21/25 05:25 01/21/25 02:29 01/21/25 01:03 01/20/25 22:56 Range/Units White Blood Count 11.9 H 4.4-10.8 10^3/uL Red Blood Count 5.23 4.5-5.90 10^6/uL Hemoglobin 14.6 13.5-17.5 g/dL Hematocrit 45.1 41.0-53.0 % Mean Corpuscular Volume 86.2 80.0-100.0 fL Mean Corpuscular Hemoglobin 27.8 L 28.0-32.0 pg Mean Corpuscular Hemoglobin Concent 32.3 32.0-36.0 g/dL Red Cell Distribution Width 20.5 H 11.8-14.3 % Platelet Count 154 140-450 10^3/uL Mean Platelet Volume 9.9 6.9-10.8 fL Neutrophils (%) (Auto) 91.5 H 37.0-80.0 % Lymphocytes (%) (Auto) 2.2 L 10.0-50.0 % Monocytes (%) (Auto) 6.2 0.0-12.0 % Eosinophils (%) (Auto) 0.0 0.0-7.0 % Basophils (%) (Auto) 0.1 0.0-2.0 % Neutrophils # (Auto) 10.9 H 1.6-8.6 10 ^3/uL Lymphocytes # (Auto) 0.3 L 0.4-5.4 10 ^3/uL Monocytes # (Auto) 0.7 0-1.3 10 ^3/uL Eosinophils # (Auto) 0 0-0.8 10 ^3/uL Basophils # (Auto) 0 0-0.2 10 ^3/uL Nucleated Red Blood Cells 0.2 % Sodium Level 135 L 136-145 mmol/L Potassium Level 5.0 3.5-5.1 mmol/L Chloride Level 95 L 98-107 mmol/L Carbon Dioxide Level 27 20-31 mmol/L Anion Gap 13 5-15 Blood Urea Nitrogen 45 H 9-23 mg/dL Creatinine 1.74 H 0.700-1.30 mg/dL Glomerular Filtration Rate Calc 44 >90 mL/min BUN/Creatinine Ratio 25.9 H 10.0-20.0 Serum Glucose 178 H 74-106 mg/dL Calcium Level 9.5 8.7-10.4 mg/dL Total Bilirubin 2.6 H 0.2-1.0 mg/dL Aspartate Amino Transferase (AST) 207 H 13-40 U/L Alanine Aminotransferase (ALT) 179 H 7-40 U/L Alkaline Phosphatase 241 H 46-116 U/L Total Protein 6.8 5.7-8.2 g/dL Albumin 3.7 3.2-4.8 g/dL Hemoglobin A1c 7.2 H <5.7 % A1C POC Glucose 266 H 70-106 mg/dl Urine Color Yellow Yellow Urine Clarity Clear Clear Urine pH 5.0 5.0-9.0 Urine Specific [place] 1.014 1.001-1.035 Urine Protein Trace H Negative Urine Ketones Negative Negative Urine Blood 1+ H Negative /uL Urine Nitrite Negative Negative Urine Bilirubin Negative Negative Urine Urobilinogen Normal Negative mg/dL Urine Leukocyte Esterase Negative Negative /uL Urine RBC 3 0 - 3 /hpf Urine Microscopic WBC 5 H 0-3 /HPF Urine Squamous Epithelial Cells Few <5 /hpf Urine Bacteria None seen None Seen /hpf Urine Hyaline Casts Few 0 - 2 /lpf Urine Glucose 4+ H Normal mg/dL Urine Opiates Screen Pos NEGATIVE Urine Fentanyl Screen Neg NEGATIVE Urine Barbiturates Screen Neg NEGATIVE Urine Phencyclidine Screen Neg NEGATIVE Urine Amphetamines Screen Neg NEGATIVE Urine Benzodiazepines Screen Neg NEGATIVE Urine Cocaine Screen Neg NEGATIVE Urine Cannabinoids Screen Neg NEGATIVE Test 01/20/25 21:42 01/20/25 21:15 01/19/25 21:16 01/19/25 19:13 Range/Units Magnesium Level 2.2 1.6-2.6 mg/dL B-Type Natriuretic Peptide 3994.06 0-100 pg/mL Blood Gas Specimen Type Arterial Blood Gas Sample Site Left brachial Blood Gas Patient Temperature 37.0 Arterial Blood Date Drawn [id number] Arterial Blood pH 7.412 7.350-7.450 Arterial Blood Partial Pressure CO2 35.8 35.0-48.0 mmHg Arterial Blood Partial Pressure O2 160.8 H 83.0-108.0 mmHg Arterial Blood HCO3 22.3 21.0-28.0 mmol/L Arterial Blood Oxygen Saturation 99.1 H 94.0-98.0 % Arterial Blood Base Excess -1.7 -2.0-3.0 mmol/L Arterial Blood Oxyhemoglobin 97.7 94.0-98.0 % Arterial Blood Carboxyhemoglobin 0.9 0.5-1.5 % Arterial Blood Methemoglobin 0.5 0.0-1.5 % Lino Test N/a Blood Gas Total Hemoglobin 15.30 13.5-17.5 g/dL Blood Gas Liter Flow 6.00 Blood Gas Modality Nasal cannula FiO2 % 44.0 Troponin I High Sensitivity 572 *H </=54 ng/L Lactic Acid Level 4.0 *H 0.4-2.0 mmol/L Test 01/19/25 17:38 Range/Units D-Dimer, Quantitative 2.74 H 0.0-0.49 mg/L FEU Microbiology Date/Time Source Procedure Growth Status 01/20/25 06:15 Nose MRSA Screen - Final Methicillin Resistant S.aureus Complete Assessment Traumatic Salter pull out BPH Plan/Recommendation Salter to gravity x 2 weeks Outpatient cystoscopy TBA CT AP/NC Please restrain patient Plan discussed with: Patient, Other ELBA YEH MD Jan 21, 2025 14:54
[2025-01-21] MEDS ORDERED: LIDOCAINE 2% TOPICAL JELLY 5 ML URJT TOP ONE (15:15)
[2025-01-21] MEDS: KETOROLAC TROMETH 30 MG/ML 1ML VIAL IV ONE (15:21)
[2025-01-21] MEDS: KETOROLAC TROMETH 30 MG/ML 1ML VIAL ONE (15:22)
[2025-01-21] MEDS: LIDOCAINE 2% JELLY 11ml (GLYDO) UR ONE (15:30)
--- NOTE | 2025-01-21 16:11 | DVH ---
ULTRASOUND ABDOMEN limited, 4 QUADRANTS INDICATION: SALTER PLACEMENT Evaluate for ascites. TECHNIQUE: The four quadrants of the abdomen were scanned in mehta-scale to assess for the presence of ascites. N o solid organ assessment was performed. Salter catheter noted in the decompressed bladder FINDINGS/IMPRESSIONS: Salter balloon noted decompressed bladder. Ascites seen in all 4 quadrants.
--- NOTE | 2025-01-21 16:32 | DVH ---
CHEST RADIOGRAPH Indication: INTERVAL CHANGES Technique: Single frontal view of the chest was obtained COMPARISON: XY CHEST PORTABLE on DOS: 01/20/25, XY CHEST PORTABLE on DOS: 01/19/25, XY CHEST XRAY 1 VIE W on DOS: 11/04/24, XY CHEST PORTABLE on DOS: 11/03/24 FINDINGS: Lines and Tubes: None Lungs: Clear Pleura: Moderate right pleural effusion, mildly diminished since the earlier study No pneumothorax. Cardiomediastinal contours: Stable cardiomegaly Bones: Unremarkable IMPRESSION: 1. Moderate right pleural effusion, diminished compared to the earlier study.
[2025-01-21 18:41] LABS: Hematocrit 43.5 % (41.0-53.0); Hemoglobin 14.0 g/dL (13.5-17.5); Mean Corpuscular Hemoglobin 27.6 pg (28.0-32.0); Mean Corpuscular Volume 85.9 fL (80.0-100.0); Nucleated Red Blood Cells % 0.1 %
[2025-01-22] VITALS (9 sets, daily range): BP systolic 93–165; BP diastolic 52–65; PULSE 71–99; RESP 19–20; TEMP 98.9–99.7; O2SAT 96–99
[2025-01-22 05:28] LABS: Albumin 3.3 g/dL (3.2-4.8); Anion Gap 13 (5-15); BUN/Creatinine Ratio 29.7 (10.0-20.0); Calcium 9.1 mg/dL (8.7-10.4); Carbon Dioxide 25 mmol/L (20-31); Potassium 4.6 mmol/L (3.5-5.1); Total Protein 6.0 g/dL (5.7-8.2)
[2025-01-22 05:30] LABS: Alanine Aminotransferase 130 U/L (7-40); Alkaline Phosphatase 206 U/L (46-116); Bilirubin, Total 2.9 mg/dL (0.2-1.0); Blood Urea Nitrogen 43 mg/dL (9-23); Chloride 95 mmol/L (98-107); Glucose 203 mg/dL (74-106); Sodium 133 mmol/L (136-145)
[2025-01-22] MEDS: LIDOCAINE 2% JELLY 11ml (GLYDO) ONE (08:27)
--- NOTE | 2025-01-22 11:38 | DVHPN2 ---
Progress Note - Dictate Date Seen: Jan 22, 2025 Has the PT tested + for MRSA If YES, has PT been informed?: No Medical Necessity Reason Pt with a Central, PICC or Fol: Yes The following are medically ne: Nix Catheter Reason for nix catheter: Bladder Retention/Obstruc Medical Necessity Reason Patient is status post placement of a [address] catheter for management of his enlarged prostate gland and gross hematuria. Subjective I spoke with patient's family member at the bedside regarding the incident that occurred when patient pulled out his original catheter. All questions were encouraged and answered vital signs Vital Sign Date Time Temp Pulse Resp B/P (MAP) Pulse Ox O2 Delivery O2 Flow Rate FiO2 01/22/25 09:30 96 Nasal Cannula 2.0 01/22/25 09:30 28 01/22/25 07:30 93 01/21/25 22:00 121/81 01/21/25 21:00 98.4 20 98.4 Total Intake and Output 01/21/25 01/21/25 01/22/25 15:00 23:00 07:00 Intake Total 600 ml 4800 ml Output Total 1100 ml 38556 ml Balance -500 ml -8000 ml medications Current Medications Medications Dose Ordered Sig/Simon Route Start Time Stop Time Status Last Admin Dose Admin Apixaban 5 mg BID PO 01/19/25 22:00 01/20/25 09:36 5 MG Atorvastatin Calcium 40 mg HS PO 01/19/25 22:00 01/19/25 22:12 40 MG Aspirin 162 mg DAILY PO 01/20/25 10:00 01/20/25 09:35 162 MG Carvedilol 3.125 mg Q12HR PO 01/19/25 22:00 01/20/25 09:36 3.125 MG Empaglifozin 10 mg DAILY PO 01/20/25 10:00 01/20/25 09:36 10 MG Furosemide 20 mg BIDD IV 01/20/25 06:00 01/21/25 06:45 20 MG Albuterol 2.5 mg Q6HPRN PRN NEB 01/19/25 19:45 01/21/25 18:40 2.5 MG Ipratropium [place] 0.5 mg Q6HPRN PRN NEB 01/19/25 19:45 01/21/25 18:40 0.5 MG Levofloxacin 50 ml @ 50 mls/hr Q24H IV 01/20/25 17:00 Temazepam 15 mg QHSP PRN PO 01/19/25 19:45 01/20/25 00:21 15 MG Ondansetron HCl 4 mg Q4HP PRN IV 01/19/25 19:45 Acetaminophen 650 mg Q6HP PRN PO 01/19/25 19:45 Nitroglycerin 0.4 mg Q5MINP PRN SL 01/19/25 19:45 Morphine Sulfate 2 mg Q30M PRN IV 01/19/25 19:45 Haloperidol Lactate 10 mg Q6HPRN PRN IM 01/20/25 11:45 01/22/25 01:27 10 MG Citalopram Hydrobromide 10 mg DAILY PO 01/22/25 10:00 Lorazepam 1 mg Q2HP PRN IV 01/21/25 14:15 Famotidine 20 mg DAILY IV 01/22/25 10:00 objective Nix catheter in place with minimal irrigation ongoing. Urine is clear laboratory and microbiology Laboratory Tests 01/22/25 04:40 01/21/25 18:08 Test 01/22/25 04:40 Range/Units Serum Glucose 203 H 74-106 mg/dL Problem List Enlarged prostate gland/urinary retention Traumatic Nix removal Assessment/Plan Traumatic Nix pull out BPH Nix catheter to remain in place for two weeks. He will need to undergo cystoscopy with possible TURP Plan discussed with: Patient, Daughter ELBA YEH MD Jan 22, 2025 11:38
--- NOTE | 2025-01-22 12:55 | DVH ---
Exam: CT CT AB PEL WO CON-NO ORAL OR IV History: GROSS HEMATURIA Comparison Study: None TECHNIQUE: Multidetector CT of the abdomen was performed from lung bases to pubic symphysis. Imaging was performed without IV contrast. Axial, coronal and sagittal multiplanar reformats were obtained fr om the axial data set by the technologist. Radiation Dose Information: CT Dose: CTDI volume is 8 mGy. Dose-length product is 444 mGy*cm FINDINGS: Evaluation of solid organs is limited due to lack of intravenous contrast use. Findings: Lung Bases: There is a large right effusion. There is a small left effusion. Bibasilar mild infiltra helena /atelectasis is seen. Heart size is enlarged. GI tract: Stomach is distended. Diverticulosis is noted. Liver: The liver is normal in size. No focal lesions. Gallbladder and Biliary Tree: Unremarkable Spleen: Unremarkable Pancreas: The pancreas is grossly normal in appearance. Adrenal Glands: Unremarkable Kidneys: There is a nonobstructing right renal calculus. Bladder: There is a small amount of air within the bladder likely from the Salter catheter. The bladd er wall is also mildly thickened. Bowel: The stomach is grossly normal in appearance. Small bowel and colon are normal in caliber and d istribution. The appendix is not visualized; however, no secondary findings of acute appendicitis id entified. Ascites: [id number] amount of ascites is seen. Lymphadenopathy: No mesenteric, retroperitoneal or periportal lymphadenopathy. Abdominal Wall and Mesentery: Unremarkable. Vasculature: The visualized abdominal aorta is normal in size and caliber. Evaluation of abdominal a nd pelvic vessels is limited due to lack of intravenous contrast. Pelvic Organs: Unremarkable Musculoskeletal: No aggressive focal bony lesions, acute fractures or dislocation. Soft tissues: Mild anasarca is noted. IMPRESSION: 1. Moderate to large ascites. 2. Large right effusion, small left effusion, bibasilar mild infiltrates/atelectasis. 3. Nonobstructing right renal calculus. 4. Mild bladder wall thickening 5. Mild anasarca 6. Radiation optimization: All CT scans at this facility use at least one of these dose optimization techniques: automated exposure control mA and/or kV adjustment per patient size (includes targeted e xams where dose is matched to clinical indication) or iterative reconstruction.
[2025-01-22] MEDS: CITALOPRAM HYDROBR 20 MG TAB PO SCH (12:59)
[2025-01-22] MEDS: FAMOTIDINE (10MG/ML) 2ML VL IV SCH (13:24)
--- NOTE | 2025-01-22 16:42 | DVHPN2 ---
Subjective He was agitated earlier but now he is calm and alert and oriented His family is asking for him to come home with the hospice Reviewed: H&P Changes from previous H/P or p: Changes General: Per HPI Objective Vitals Vital Signs Date Time Temp Pulse Resp B/P (MAP) Pulse Ox O2 Delivery O2 Flow Rate FiO2 01/22/25 13:59 93 165/55 01/22/25 13:00 99.7 20 99 99.7 01/22/25 09:30 Nasal Cannula 2.0 01/22/25 09:30 28 Intake/Output Intake and Output 01/22/25 07:00 Intake Total 5400 ml Output Total 74020 ml Balance -8500 ml Intake Oral 5400 ml Output Urine Total 77834 ml General Appearance: Alert, Oriented X3 Lungs: Clear to auscultation Cardiovascular: Regular rate, Normal S1 Extremities: No edema Medications Current Medications Medications Dose Ordered Sig/Simon Route Start Time Stop Time Status Last Admin Dose Admin Apixaban 5 mg BID PO 01/19/25 22:00 01/22/25 13:00 5 MG Atorvastatin Calcium 40 mg HS PO 01/19/25 22:00 01/19/25 22:12 40 MG Aspirin 162 mg DAILY PO 01/20/25 10:00 01/22/25 13:01 162 MG Carvedilol 3.125 mg Q12HR PO 01/19/25 22:00 01/22/25 12:59 3.125 MG Empaglifozin 10 mg DAILY PO 01/20/25 10:00 01/22/25 13:01 10 MG Furosemide 20 mg BIDD IV 01/20/25 06:00 01/21/25 06:45 20 MG Albuterol 2.5 mg Q6HPRN PRN NEB 01/19/25 19:45 01/21/25 18:40 2.5 MG Ipratropium [place] 0.5 mg Q6HPRN PRN NEB 01/19/25 19:45 01/21/25 18:40 0.5 MG Levofloxacin 50 ml @ 50 mls/hr Q24H IV 01/20/25 17:00 Temazepam 15 mg QHSP PRN PO 01/19/25 19:45 01/20/25 00:21 15 MG Ondansetron HCl 4 mg Q4HP PRN IV 01/19/25 19:45 Acetaminophen 650 mg Q6HP PRN PO 01/19/25 19:45 Nitroglycerin 0.4 mg Q5MINP PRN SL 01/19/25 19:45 Morphine Sulfate 2 mg Q30M PRN IV 01/19/25 19:45 Haloperidol Lactate 10 mg Q6HPRN PRN IM 01/20/25 11:45 01/22/25 01:27 10 MG Citalopram Hydrobromide 10 mg DAILY PO 01/22/25 10:00 01/22/25 12:59 10 MG Lorazepam 1 mg Q2HP PRN IV 01/21/25 14:15 Famotidine 20 mg DAILY IV 01/22/25 10:00 01/22/25 13:24 20 MG Mupirocin 1 applic BID EACHNOSTRI 01/22/25 22:00 01/27/25 21:59 Laboratory Results Laboratory Tests 01/21/25 18:08 01/22/25 04:40 Chemistry Test 01/22/25 04:40 Albumin 3.3 g/dL (3.2-4.8) Calcium Level 9.1 mg/dL (8.7-10.4) Total Protein 6.0 g/dL (5.7-8.2) LFT Test 01/22/25 04:40 Alanine Aminotransferase (ALT) 130 U/L (7-40) H Alkaline Phosphatase 206 U/L (46-116) H Aspartate Amino Transferase (AST) 119 U/L (13-40) H Total Bilirubin 2.9 mg/dL (0.2-1.0) H HgA1c, TSH Test 01/22/25 04:40 Thyroid Stimulating Hormone (TSH) 1.56 uIU/mL (0.55-4.78) Urinalysis Test 01/20/25 22:56 Urine Color Yellow (Yellow) Urine Clarity Clear (Clear) Urine pH 5.0 (5.0-9.0) Urine Specific [place] 1.014 (1.001-1.035) Urine Protein Trace (Negative) H Urine Ketones Negative (Negative) Urine Blood 1+ /uL (Negative) H Urine Nitrite Negative (Negative) Urine Bilirubin Negative (Negative) Urine Urobilinogen Normal mg/dL (Negative) Urine Leukocyte Esterase Negative /uL (Negative) Urine RBC 3 /hpf (0 - 3) Urine Microscopic WBC 5 /HPF (0-3) H Urine Squamous Epithelial Cells Few /hpf (<5) Urine Bacteria None seen /hpf (None Seen) Urine Hyaline Casts Few /lpf (0 - 2) Urine Glucose 4+ mg/dL (Normal) H Microbiology Microbiology Date/Time Source Procedure Growth Status 01/20/25 17:17 Blood Blood Culture - Preliminary NO GROWTH AFTER 24 HOURS OF INCUBATION. 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 COPD Plan Continue IV levofloxacin Add Zyvox IV Hospice consult Continue GDMT with beta carolyn, Jardiance, Physical therapy Discussed with the family at the bedside Plan discussed with: Patient My Orders Orders - GILBERT MEZA MD Procedure Category Date Status Time * Windows Migration Technician CONS 01/22/25 Transmitted Consult Mupirocin 2% Oint PHA 01/22/25 In Process Mrsa Nares (Bactroban 22:00 Pt Request For Service PT 01/22/25 Logged 15:51 Date of Service: Jan 22, 2025 Billing Provider: GILBERT MEZA MD Common Visit Codes: [id number] INP/OBS CARE(HIGH) GILBERT MEZA MD Jan 22, 2025 16:42
[2025-01-22] MEDS: LORazepam 2MG/ML-1ML VIAL IV PRN (17:41)
[2025-01-22] MEDS: LINEZOLID 600MG/300ML 300 ML IV SCH (22:00)
[2025-01-22] MEDS: MUPIROCIN 2% OINT 15gm or 22gm FOR MRSA NARES EACHNOSTRI SCH (22:00)
[2025-01-23 05:00] VITALS: BP 95/53; PULSE 82; RESP 19; TEMP 98.5; O2SAT 96
[2025-01-23 08:00] VITALS: PULSE 87; PULSE 90; RESP 20; O2SAT 99
[2025-01-23 10:00] VITALS: O2SAT 99
[2025-01-23] MEDS ORDERED: LINE1TAB6 PO (14:06)
[2025-01-23] MEDS ORDERED: MUPI2OIN2 EX (14:06)
--- NOTE | 2025-01-23 14:13 | DVHDS2 ---
Discharge Summary Date of Admission Jan 19, 2025 at 19:40 Date of Discharge: Jan 23, 2025 Labs/Diagnostic Data: Laboratory Results Test 01/22/25 04:40 01/21/25 18:08 01/21/25 02:29 01/21/25 01:03 Sodium Level 133 mmol/L (136-145) Potassium Level 4.6 mmol/L (3.5-5.1) Chloride Level 95 mmol/L (98-107) Carbon Dioxide Level 25 mmol/L (20-31) Anion Gap 13 (5-15) Blood Urea Nitrogen 43 mg/dL (9-23) Creatinine 1.45 mg/dL (0.700-1.30) Glomerular Filtration Rate Calc 54 mL/min (>90) BUN/Creatinine Ratio 29.7 (10.0-20.0) Serum Glucose 203 mg/dL (74-106) Calcium Level 9.1 mg/dL (8.7-10.4) Total Bilirubin 2.9 mg/dL (0.2-1.0) Aspartate Amino Transferase (AST) 119 U/L (13-40) Alanine Aminotransferase (ALT) 130 U/L (7-40) Alkaline Phosphatase 206 U/L (46-116) Ammonia < 10 umol/L (11-32) Total Protein 6.0 g/dL (5.7-8.2) Albumin 3.3 g/dL (3.2-4.8) Thyroid Stimulating Hormone (TSH) 1.56 uIU/mL (0.55-4.78) White Blood Count 15.2 10^3/uL (4.4-10.8) Red Blood Count 5.06 10^6/uL (4.5-5.90) Hemoglobin 14.0 g/dL (13.5-17.5) Hematocrit 43.5 % (41.0-53.0) Mean Corpuscular Volume 85.9 fL (80.0-100.0) Mean Corpuscular Hemoglobin 27.6 pg (28.0-32.0) Mean Corpuscular Hemoglobin Concent 32.1 g/dL (32.0-36.0) Red Cell Distribution Width 20.3 % (11.8-14.3) Platelet Count 143 10^3/uL (140-450) Mean Platelet Volume 9.5 fL (6.9-10.8) Neutrophils (%) (Auto) 91.1 % (37.0-80.0) Lymphocytes (%) (Auto) 1.8 % (10.0-50.0) Monocytes (%) (Auto) 6.9 % (0.0-12.0) Eosinophils (%) (Auto) 0.0 % (0.0-7.0) Basophils (%) (Auto) 0.2 % (0.0-2.0) Neutrophils # (Auto) 13.9 10 ^3/uL (1.6-8.6) Lymphocytes # (Auto) 0.3 10 ^3/uL (0.4-5.4) Monocytes # (Auto) 1.1 10 ^3/uL (0-1.3) Eosinophils # (Auto) 0 10 ^3/uL (0-0.8) Basophils # (Auto) 0 10 ^3/uL (0-0.2) Nucleated Red Blood Cells 0.1 % Hemoglobin A1c 7.2 % A1C (<5.7) POC Glucose 266 mg/dl (70-106) Test 01/20/25 22:56 01/20/25 21:42 01/20/25 21:15 01/19/25 21:16 Urine Color Yellow (Yellow) Urine Clarity Clear (Clear) Urine pH 5.0 (5.0-9.0) Urine Specific [place] 1.014 (1.001-1.035) Urine Protein Trace (Negative) Urine Ketones Negative (Negative) Urine Blood 1+ /uL (Negative) Urine Nitrite Negative (Negative) Urine Bilirubin Negative (Negative) Urine Urobilinogen Normal mg/dL (Negative) Urine Leukocyte Esterase Negative /uL (Negative) Urine RBC 3 /hpf (0 - 3) Urine Microscopic WBC 5 /HPF (0-3) Urine Squamous Epithelial Cells Few /hpf (<5) Urine Bacteria None seen /hpf (None Seen) Urine Hyaline Casts Few /lpf (0 - 2) Urine Glucose 4+ mg/dL (Normal) Urine Opiates Screen Pos (NEGATIVE) Urine Fentanyl Screen Neg (NEGATIVE) Urine Barbiturates Screen Neg (NEGATIVE) Urine Phencyclidine Screen Neg (NEGATIVE) Urine Amphetamines Screen Neg (NEGATIVE) Urine Benzodiazepines Screen Neg (NEGATIVE) Urine Cocaine Screen Neg (NEGATIVE) Urine Cannabinoids Screen Neg (NEGATIVE) Magnesium Level 2.2 mg/dL (1.6-2.6) B-Type Natriuretic Peptide 3994.06 pg/mL (0-100) Blood Gas Specimen Type Arterial Blood Gas Sample Site Left brachial Blood Gas Patient Temperature 37.0 Arterial Blood Date Drawn [id number] Arterial Blood pH 7.412 (7.350-7.450) Arterial Blood Partial Pressure CO2 35.8 mmHg (35.0-48.0) Arterial Blood Partial Pressure O2 160.8 mmHg (83.0-108.0) Arterial Blood HCO3 22.3 mmol/L (21.0-28.0) Arterial Blood Oxygen Saturation 99.1 % (94.0-98.0) Arterial Blood Base Excess -1.7 mmol/L (-2.0-3.0) Arterial Blood Oxyhemoglobin 97.7 % (94.0-98.0) Arterial Blood Carboxyhemoglobin 0.9 % (0.5-1.5) Arterial Blood Methemoglobin 0.5 % (0.0-1.5) Lino Test N/a Blood Gas Total Hemoglobin 15.30 g/dL (13.5-17.5) Blood Gas Liter Flow 6.00 Blood Gas Modality Nasal cannula FiO2 % 44.0 Troponin I High Sensitivity 572 ng/L (</=54) Test 01/19/25 19:13 01/19/25 17:38 Lactic Acid Level 4.0 mmol/L (0.4-2.0) D-Dimer, Quantitative 2.74 mg/L FEU (0.0-0.49) Other Laboratory Tests 01/22/25 04:40 01/21/25 18:08 Brief Hx & Hospital Course: Final diagnoses: Acute metabolic encephalopathy Acute on chronic respiratory failure Acute heart failure exacerbation combined, EF 15% MRSA pneumonia History of methamphetamine use Hyperkalemia Acute kidney 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 COPD 64-year-old male with metabolic encephalopathy and MRSA pneumonia The patient gets agitated at times The family wanted hospice at home Consult hospice Discharged home on hospice once it is arranged Zyvox and Bactroban ointment for MRSA Condition at Discharge: Poor Final Diagnosis/Problems List Acute metabolic encephalopathy Acute on chronic respiratory failure Acute heart failure exacerbation combined, EF 15% MRSA pneumonia History of methamphetamine use Hyperkalemia Acute kidney 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 COPD Discharge Disposition: Hospice - Home SNF Discharge Will this Physician continue t: No Discharge Instruct/Medications Diet: Cardiac 2g Na,low cholest Activity: No Restrictions, As Tolerated Follow Up/Referral: Hospice at home Medications: Zyvox for 7 days Bactroban ointment for 4 days Scheduled Apixaban Base (Eliquis), 5 MG PO BID Atorvastatin Calcium (Lipitor), 1 TAB PO DAILY Azithromycin (Azithromycin), 1 TAB PO DAILY Carvedilol (Coreg), 3.125 MG PO BID Empagliflozin (Jardiance), 10 MG PO DAILY Furosemide (Lasix), 40 MG PO DAILY Linezolid (Zyvox), 600 MG PO BID Lisinopril (Lisinopril), 1 TAB PO DAILY Mupirocin (Pseudomonas Fluores (Mupirocin), 2 % EX BID Spironolactone (Aldactone), 1 TAB PO DAILY Scheduled PRN Albuterol Sulfate (Ventolin Mdi), 90 MCG IN QID PRN Discharge Statement: "Patient was advised to return to the ER or call 911 if any headaches, dizziness, shortness of breath, chest pain, abdominal pain, bleeding, fevers, or worsening of medical condition. Patient was counseled about treatment plan, medications, possible side effects, patientverbalized understanding. All questions were answered to the best of my ability. 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
[2025-01-23 16:51] VITALS: BP 95/53; PULSE 91
[2025-01-23] MEDS: ACETAMINOPHEN 325 MG TAB PO PRN (17:53)
[2025-01-23 18:20] VITALS: BP 92/50; PULSE 87; RESP 19; TEMP 98.1; O2SAT 97
[2025-01-25 01:06] LABS: Prostate Specific Antigen 0.5 ng/mL (0.0-4.0)
== END 2025-01-23 19:00 | disposition hospice, home (50) | DRG 194 ==
LOC: EDBD 16:00 → ER 16:00 → EDUNIT# 16:00 → OVERFLOW 19:40 → TELE-EAST 01-20 02:47
PROVIDERS: ADMIT Student in an Organized Health Care Education/Training Program; ATTEND Student in an Organized Health Care Education/Training Program
DX: I13.0 Hypertensive heart and chronic kidney disease with heart failure and stage 1 through stage 4 chronic kidney disease, or unspecified chronic kidney disease (principal); N17.0 Acute kidney failure with tubular necrosis; G93.41 Metabolic encephalopathy; J15.212 Pneumonia due to Methicillin resistant Staphylococcus aureus; J96.21 Acute and chronic respiratory failure with hypoxia; E87.1 Hypo-osmolality and hyponatremia; D72.829 Elevated white blood cell count, unspecified; E11.22 Type 2 diabetes mellitus with diabetic chronic kidney disease; E87.20 Acidosis, unspecified; J44.0 Chronic obstructive pulmonary disease with (acute) lower respiratory infection; N40.0 Benign prostatic hyperplasia without lower urinary tract symptoms; I50.43 Acute on chronic combined systolic (congestive) and diastolic (congestive) heart failure; I21.A1 Myocardial infarction type 2; R45.851 Suicidal ideations; E87.5 Hyperkalemia; I48.91 Unspecified atrial fibrillation; N18.32 Chronic kidney disease, stage 3b; R79.89 Other specified abnormal findings of blood chemistry; F15.10 Other stimulant abuse, uncomplicated; F32.9 Major depressive disorder, single episode, unspecified; I42.0 Dilated cardiomyopathy; R74.01 Elevation of levels of liver transaminase levels; Z88.0 Allergy status to penicillin; Z91.199 Patient's noncompliance with other medical treatment and regimen due to unspecified reason; Z87.891 Personal history of nicotine dependence; Z59.00 Homelessness unspecified; Z78.1 Physical restraint status
CPT/HCPCS: 36415; 36600; 71045; 74176; 76857; 80048; 80053; 80307; 81001; 82140; 82805; 82962; 83036; 83605; 83735; 83880; 84132; 84154; 84443; 84484; 85025; 85379; 87040; 87081; 93005; 94640; 96374; 96375; 99291; G0378; J1815; J1885; J3490